=== PATIENT | female | born 1990 | race African-American/Black ===

== ENCOUNTER 2024-02-22 00:26 | Emergency (ER) | payer MEDICARE, SELFPAY ==
[2024-02-22 00:36] VITALS: BP 148/85; PULSE 88; PULSE 90; RESP 17; TEMP 36.2; O2SAT 100; O2SAT 95; BMI 34.3
--- NOTE | 2024-02-22 00:50 | PC.NURSE ---
Per Clinical coordinator patient does not need to be changed over and may keep her belongings. Patient is not SI or HI at this time but is endorsing significant anxiety. Will continue to monitor the situation through the night.
--- NOTE | 2024-02-22 00:53 | PC.NURSE ---
Patient refusing lab work but does endorse having a copy of blood work from 3 days ago that she is willing to share with the care providers.
--- NOTE | 2024-02-22 01:08 | PC.NURSE ---
pt biba from the side of the street, a&ox4, respirations even and unlabored. pt reports she has been having problems with PTSD and depression. pt reports she takes rispiridone but reports she does not believe it is working. pt is requesting to speak to care team. pt denies si/hi. pt is refusing to change lead at this time, digital strategy specialist aware.
--- NOTE | 2024-02-22 01:19 | PC.NURSE ---
patient states she is scared to go to the bathroom, offered to have a staff member accompany to the bathroom and that offer was declined. Patient subsequently changed into hospital attire then she decided to take hospital attire off and put her own clothes back on. Patient was moved from 22H to 18H because she feared that radiation was coming through the fischer and affecting her.
--- NOTE | 2024-02-22 01:27 | PC.NURSE ---
If I would have known these rules I would have never come here.
--- NOTE | 2024-02-22 01:29 | PC.NURSE ---
Patient is having irrational thoughts, stating this is crazy and wants to be discharged. Security to accompany patient to the exit.
--- NOTE | 2024-02-22 01:45 | PC.NURSE ---
Pt A&Ox3, states this is crazy, I am not changing into hospital attire, I want discharge papers . Pt ambulated out of hospital independently with steady gait.
== END 2024-02-22 01:50 | disposition left against medical advice (07) ==
PROVIDERS: Emergency Provider Emergency Medicine
DX: F41.9 Anxiety disorder, unspecified (principal)
CPT/HCPCS: 99282; 99284

== ENCOUNTER 2024-02-22 10:32 | Emergency (ER) | payer MEDICARE, SELFPAY ==
[2024-02-22 10:36] VITALS: BP 123/63; PULSE 75; RESP 19; TEMP 36.6; O2SAT 98; BMI 51.1
--- NOTE | 2024-02-22 12:35 | ED.LOWEXIN ---
HPI - Extremity Injury (Lower) General Chief Complaint: Extremity Injury, Lower Stated Complaint: pain in both legs Time Seen by Provider: 02/22/24 12:20 Source: patient Mode of arrival: ambulatory Limitations: no limitations History of Present Illness ED Provider: Benjy Wei HPI Narrative: This is a 33 year old female presenting to the ED requesting a ride home she states she was in our waiting room all night and states shes thirsty, hungry and needs me to call her a cab. I explained to her that we dont usually check into the emergency department for rides as we dont offer complimentary taxi services. She is demanding for me to get her a cab or she will call the police. Refusing to be seen states she just needs a ride. Related Data Allergies Allergy/AdvReac Type Severity Reaction Status Date / Time No Known Allergies Allergy Verified 02/22/24 10:41 Review of Systems Review of Systems: Yes all other systems are reviewed and are negative PMFSH Past Medical History Attestation statement: The following information was validated with the patient. Source: old records reviewed and nursing notes reviewed Social History Social History Advance Directives: No Advance Directives Information Provided: No Do you have a plan to hurt others: No Plan Physical Exam Vital Signs: Vital Signs: Last Vital Signs Temp 98 F 02/22/24 10:36 Pulse 75 02/22/24 10:36 Resp 19 02/22/24 10:36 BP 123/63 02/22/24 10:36 Pulse Ox 98 02/22/24 10:36 O2 Del Method Room Air 02/22/24 10:36 BMI result Body Mass Index 51.1 vss Appearance: Alert.? Oriented X3.? No acute cardiopulmonary distress distress.? Head: Normocephalic, atraumatic, no step-offs or deformities CVS: Pulses normal.? Respiratory: No respiratory distress.? Abdomen: Soft and nontender.? Skin: ? Normal skin color. Extremities: 5/5 strength to bilateral upper and lower extremitie Neuro: Oriented X 3.? No motor deficit.? No sensory deficit. Medical Decision Making Medical Decision Making MDM Narrative: 33 yo f presents seeking a ride home. No medical complaints to this PA-C or nursing. Just states shes hungry and . PE - appears well refusing thorough exam Hx and pe concerning for poor community resources for patient. Appears medically stable. Plan- patient eloped Differential Diagnosis Differential Diagnoses: The differential diagnosis associated with the presentation includes (Hx and pe concerning for poor community resources for patient. Appears medically stable. ) Admission/Observation Consideration of admission/observation: Escalation of care including admission/observation considered Discharge Plan Discharge Clinical Impression: Hungry Patient Disposition: Left W/O Completing Treatment Print Language: Icelandic
== END 2024-02-22 13:00 | disposition left against medical advice (07) ==
PROVIDERS: Emergency Provider Emergency Medicine
DX: M79.604 Pain in right leg (principal); M79.605 Pain in left leg
CPT/HCPCS: 99281

== ENCOUNTER 2024-07-04 13:43 | Emergency (ER) | payer MEDICARE, SELFPAY ==
[2024-07-04 13:50] VITALS: BP 145/87; PULSE 93; RESP 22; TEMP 36.6; O2SAT 100; BMI 56.6
--- NOTE | 2024-07-04 13:53 | ED.GENADULT ---
HPI - General Adult General Chief complaint: Back Pain/Injury Stated complaint: BACK PAIN VERTIGO Source: patient Mode of arrival: ambulatory Limitations: no limitations History of Present Illness ED Provider: DR. Morocho HPI narrative: 34-year-old female came in for evaluation of back pain please refer to pit provider note, patient in the ED thought to be psychotic and paranoid and wanted to leave AMA the situation was escalated that the patient wanted to leave and security at the bedside hands off, I was asked to come evaluate the patient. Patient is AAO x4, no SI, no HI, no danger to self or others, no hallucination, patient [place] her luggage with the patient, at this point patient felt she is competent to make her own decision with no acute psychotic problem. Patient signed AMA. Related Data Allergies Allergy/AdvReac Type Severity Reaction Status Date / Time No Known Allergies Allergy Verified 07/04/24 13:52 Review of Systems Review of Systems: Yes Unobtainable due to mental condition PMFSH Social History Social History Do you have a plan to hurt others: No Plan Physical Exam ED Vital Signs: Vital Signs - 24 hr 07/04/24 13:50 Temperature 97.8 F Pulse Rate 93 Respiratory Rate 22 H Blood Pressure 145/87 H Pulse Oximetry 100 Oxygen Delivery Method Room Air BMI result Body Mass Index 56.6 Vital signs have been reviewed and appear to be correct. Blood pressure elevated. Heart rate normal. Respiratory rate normal. Temperature normal. Oxygen saturation normal. Patient is refusing to be seen Course Course Course Narrative: RME performed by Nicolasa Viveros PA-C. Patient is a 34 year old assigned female at presenting to the emergency department with low back pain. Patient states she has low back pain after lifting something heavy and she also needs to speak to a social media project manager about a program she was supposed to be in here but has not gotten there yet. Detailed physical exam and review of systems are deferred to the licensed bondsman. Patient placed back in the waiting room pending room availability. Reevaluation(s) Reevaluation #1: AAO x3, understand that she is in the emergency department for evaluation of the medical condition that is not emergency or urgency, vital signs appeared to be stable, patient is redirectable, able to tell me no SI, no HI, told me that she is here to speak with social media project manager to help her to get into a program? Time: 15:35 Medical Decision Making Differential Diagnosis Differential Diagnoses: The differential diagnosis associated with the presentation includes (Acute disorganized psychosis, SI, HI, hallucination.) Admission/Observation Consideration of admission/observation: Escalation of care including admission/observation considered Discharge Plan Discharge Clinical Impression: Back pain Patient Disposition: Left Against Medical Advice Print Language: Israeli
--- NOTE | 2024-07-04 15:21 | PC.NURSE ---
Pt BIBA for back pain, sent to external triage. Pt then noted by staff editor to be sl disorganized and ?hallucinating in WR. This RN then brought pt back to ED space. When bringing pt back, pt appeared to be sl paranoid and not wanting to sit in initial spencer bed and then told this RN she was sent here from [place] for program (as pt was with a suitcase) Pt refused to give this RN further details and insisted on seeing a doctor first. Pt then escalated attempting to leave, Security to bedside to assist (hands off) and Dr Morocho to bedside to assess pt and formulate dispo as pt wanting to leave. Dr Morocho reports pt denies SI/HI, hallucinations and does not appear disorganized. Okay for pt to leave.
--- NOTE | 2024-07-04 15:26 | MHC.EDTECH ---
pt screaming that she wants to leave, moving her bed back and forth
--- OUTSIDE RECORDS SUMMARY | 2024-07-04 16:48 | XMS_ITS | Continuity of Care Document ---
Author Organization [facility] Address [address] [place] [address] Phone Care Team Providers Care Veterans' Counselor Name Role Phone Erasto URI Lisa Unavailable Unavailable Allergies, Adverse Reactions, Alerts Substance Reaction Status Criticality No Known allergies Medications Medication Instructions Dosage Effective Dates (start - stop) Status Comments omeprazole 40 mg capsule,delayed release take 1 capsule by oral route every day before a meal 40 MG - Active Zantac 150 mg tablet take 1 tablet by oral route 2 times every day - Active Tylenol 325 mg tablet take 2 tablet by oral route every 4 - 6 hours as needed 650 MG - Active Tums Ultra 400 mg (1,000 mg) chewable tablet Chew and swallow on 2 tablets every 4 - 6 hours as needed for acid reflux - Active First-BXN 1.6 g-1.6 g-0.2 g/237 mL Mucosal Susp swish, gargle, and spit a solution of 40ml nystatin and 40ml diphenhydramine and 40ml lidocaine every 6 hours as needed - No Longer Active Procedures Procedure Date Office/outpatient visit,est, mod 2015 HIV-1/HIV-2 With Reflex To Western Blot VISUAL ACUITY SCREEN Preventive checkup, est,18-39 yrs Office/outpatient visit,est, low 2013 TDAP VACCINE >7 IM Ther/Proph/Diag Inj,SC/IM TB intradermal test Specimen handling/transport Venpnctr fngr/heel/ear stick routne Antibody, varicella-zoster Antibody, rubella Antibody, mumps Antibody, rubeola Office/outpatient visit,[facility] 2012 Advance Directives Directive Yes / No Effective Date File Name No Information Encounters Encounter Description Practice Location Reason(s) For Visit Diagnoses Date Provider Providers Copied on Encounter Office/outpa tient visit,[facility], [facility], [address] [place] [address], [id number], [place] tel:[phone] [facility] abdominal pain (chief complaint) Misc (chief complaint) Gastritis, unspecified, without bleedingBody mass index (BMI) 35.0-35.9, adultEncounter for screening for other viral diseases [address], [id number], [place]. tel:[phone] Preventive checkup, est,18-39 yrs [facility], [address] [place] [address], [id number], [place] tel:[phone] [facility] Physical (chief complaint) Routine Medical ExamMED EXAM NEC-ADMIN PURPSCREENING FOR MEASLESSCREENIN G FOR RUBELLASCREENIN G-POLIOMYELITIS SCREEN FOR CONDITION NOSTETANUS TOXOID INOCULATObesity , MorbidSCREENING -PULMONARY TBVACCINATION FOR DTP-DTAP 4 Barber Ramirez. [address], [id number], [place]. tel:[phone] Office/outpa tient visit,[facility], [address] [place] [address], [id number], [place] tel:[phone] [facility] sore throat (chief complaint) Pharyngitis, Acute 3 Brayden Brandt. [address] [place] [address], [id number], [place]. tel:[phone] Family History Family Member Type Diagnosis Age At Onset No Information Immunizations Vaccine Date Status Comments Tdap (Boostrix r) administered Source: Ne w Immunization Record Payers Payer name Insurance type Covered republican ID Alondra friedman(s) [employer] CI [id number] [facility] [id number] Social History Type Description Quantity Date Captured Comments Alcohol Use Details No Caffeine Use Details coffee and soda 6 Tobacco Use Status Never smoked tobacco 2015 Smoking Status Never smoker Non-Smoking Tobacco Use Details : No Details Available : No Details Available Sex Female Gender Identity Female Vital Signs Date / Time: Height Weight BMI Pulse Rate Blood Pressure Temperature Respiratory Rate Body Surface Area Head Circumference Head Circ. Percentile Wt./Mateo. Percentile BMI percentile Pulse Ox Inhaled Ox 4:01 PM 65.00 in 97.704 kg (215.40 lbs) 35.8 4 kg/m eter (2) 70 /min 123/77 mm[Hg] 97.30 F 20 /min Chief Complaint And Reason For Visit From encounter dated '11/30/2015 14:40'. abdominal pain (chief complaint). Description: Onset: 3 Days. The severity of the problem is moderate. Pain scale: 5/10. The problem has worsened. The symptoms are constant. The location is midline. The reports radiation to the back. The quality of the pain is colicky. Associated symptoms include diarrhea (frequency is 2-3x 3 days ago), nausea and vomiting (frequency is 2x yesterday). Pertinent negatives include change in appetite and fever.Additional information:Patient did a self cleanse withwater only and has not eaten in 3 days. She cannot keep fluids down at all. Foul taste in her mouth. water taste bad. LMP: 11/24/2015. Misc (chief complaint). Description: Patient advised that she did a self cleanse and that she has not eat in 3-4 days. She is nauseated and has been vomiting. She has not been able to keep any fluidsdown. She complains of diarrhea at that time but has not had a bm in 3 days.currently living at [facility] rehabbing from alcohol, marihuana, OTC sleeping pill allergy pill and cough syrup. has an xiety and currently on no meds. Reason For Referral Reason For Referral No Information Plan Of Treatment Date Type Action Status Goal PPD (TST). Due on 4 due Goal Tdap due Goal Breast MRI. Due on 16 due Goal TOOL ENGINE LATHE SET UP OPERATOR exam. Due on due Goal PAP. Due on due Goal H&P. Due on due Goal Dental exam. Due on 016 due Goal Influenza vaccine. Due on due Goal Breast exam. Due on 016 due Goal Lifestyle education regardin g diet completed Goal HPV (1st). Due on 4 due Goal Tdap. Due on due Goal TOOL ENGINE LATHE SET UP OPERATOR exam. Due on due Goal PAP. Due on due Goal Breast exam. Due on 013 due Goal H&P. Due on due Goal Td vaccine. Due on 14 due History Of Present Illness Encounter Date Complaint History Of Prese nt Illness abdominal pain Onset: 3 Days. T he severity of the problem is moderate. Pain scale: 5/10. The problem has worsened. The symptoms are constant. The location is midline. The reports radiation to the back. The quality of the pain is colicky. Associated symptoms include diarrhea (frequency is 2-3x 3 days ago), nausea and vomiting (frequency is 2x yesterday). Pertinent negatives include change in appetite and fever.Additional information:Patient did a self cleanse with water only and has not eaten in 3 days. She cannot keep fluids down at all. Foul taste in her mouth. water taste bad. LMP: 11/24/2015. [facility] Patient advised that she did a self cleanse and that she has not eat in 3-4 days. She is nauseated and has been vomiting. She has not been able to keep any fluids down. She complains of diarrhea at that time but has not had a bm in 3 days.currently living at [facility] rehabbing from alcohol, marihuana, OTC sleeping pill allergy pill and cough syrup. has anxiety and currently on no meds. Functional Status Date Functional Assessmen t Pain Score 5/10 Instructions Date Instruction Additional Infor benjamín Pt advised on testin g for and eradication of H.Pylori infectiontake all medications as orderdNO NSAIDS, Aspirins, steriods, take all meds as ordered. Check with your doctor before starting a new drugEncouraged to keep F/U appointmentclear liquid diet: sprite, 7-UP, gingeraleadvance diet as tolerated: avoid coffee, alcohol, dairy products, most fruits, vegetables red meat & heavily seasoned foods.Begin with clear liquids at room temperature, soups with rice, salted crackers, dry toast/bread and sherbet, then add baked potato, then fish poultry, applesauce and bananas. follow-up in 1 week Related to Gastritis, unspecified, without bleeding Giving encouragement to exercise Related to Body mass index (BMI) 35.0-35.9, adult Lifestyle education regarding di et Related to Body mass index (BMI) 35.0-35.9, adult Assessments Type Assessment Date assessment Gastritis, unspecified, without bleeding assessment Body mass index (BMI) 35.0-35.9, adult assessment Encounter for screening for othe r viral diseases Mental Status Date Cognitive Assessment Orientation - [place] ed to time, place, person, situation. Patient Care Teams Name Effective Dates (start - stop) Status Members No Information
--- OUTSIDE RECORDS SUMMARY | 2024-07-04 16:49 | XMS_ITS ---
Author Name [facility] Organization Unknown Encounters Encounter Type Encounter Reason Primary Diagnosis Location Date Emergency Screening for unspecified condition Screening for unspecified condition [facility] 02/23/2024 Emergency Swelling of limb Swelling of limb [facility] 02/22/2024 Emergency Other specified soft tissue disorders Other specified soft tissue disorders [facility] 02/22/2024 Care Team Organization Name Specialty Phone Email Start Date End Da te [facility] 02/25/2024 06/16/2024 [facility] GINGER COOLEY Primary [facility] 02/25/2024 04/16/2024 [facility] GINGER COOLEY [facility] 02/23/2024 [facility] 02/23/2024 [place] NO PCP Primary Care 02/23/2024 [facility] 02/23/2024
--- OUTSIDE RECORDS SUMMARY | 2024-07-04 16:49 | XMS_ITS | Data Portability ---
Author Organization [place] - [facility], [place] Address [address] [place] [address] Assessment No assessment recorded. Plan of Treatment Reminders Order Date Submit Date Provider Last Modified By Organization Details Last Modified Time Details Appointments None recorded. Lab None recorded. Referral gastroenter ologist referral - Stat 2022 023 [email or web address] Not available 3 11:42:31 gastroenter ologist referral - Stat 2022 023 [email or web address] Not available 3 21:37:29 pain management referral - List 2022 023 [email or web address] Not available 3 09:11:51 primary care provider referral - List 2022 023 [email or web address] Not available 3 09:11:51 orthopedic spine surgeon referral - List 2022 023 [email or web address] Not available 3 14:49:40 primary care provider referral - List 2022 023 [email or web address] Not available 3 14:49:41 Procedures None recorded. Surgeries None recorded. Imaging US, abdomen - STAT CPT Code: [id number] US ABDOMEN RUQ. WET READ REQUIRED.PE : RUQ abdominal pain, Rule out gallstones. CPT: 61880 2022 023 [email or web address] [facility], [address] [facility], [place], [address], 3 21:37:29 XR, ribs, unilateral, w/ PA chest 2022 023 [email or web address], [address], [place], [address], 3 09:11:51 Medication Orders Flonase Allergy Relief 50 mcg/actuati on nasal spray,suspe nsion 2022 023 NITISH Not available 3 18:29:22 Carafate 1 gram tablet 2022 023 NITISH Not available 3 18:29:17 omeprazole 40 mg capsule,del ayed release 2022 023 NITISH Not available 3 18:29:26 lidocaine 5 % topical patch 2022 023 NITISH Not available 3 16:52:16 Voltaren 1 % topical gel 2022 023 NITISH Not available 3 16:52:17 Patient TargetsNo targets recorded. Patient Instructions Encounter Date Encounter Id Patient Instructions Last Modified By Organization Details Last Modified Time 05/04/2022 [id number] A healthy lifestyle: care instructions Not available 05/04/2022 14:49:40 Thank you for visiting [facility].There are two ways to view your lab results: : ? 1. ? ? ? The [employer] Mobile marlon is available to all patients 18 and older in the Marlon Store and DraftDay. First-time marlon users will need to create an account; please note you? l l need to select a login and password for the marlon versus just using your patient portal login credentials. Your lab results will be posted to the [employer] marlon as soon as they? r e available. ? 2. ? ? ? Via email , as soon as lab results are available. If you don? t receive an email within the estimated time frame, give our Aftercare team a call at [phone]. Chest Pain Your Care Instructions There are many things that can cause chest pain. Some are not serious and will get better on their own in a few days. But some kinds of chest pain need more testing and treatment. Your doctor may have recommended a follow-up visit in the next 8 to 12 hours. If you are not getting better, you may need more tests or treatment. Even though your doctor has released you, you still need to watch for any problems. The doctor carefully checked you, but sometimes problems can develop later. If you have new symptoms or if your symptoms do not get better, get medical care right away. If you have worse or different chest pain or pressure that lasts more than 5 minutes or you passed out (lost consciousness), call 911 or seek other emergency help right away. A medical visit is only one step in your treatment. Even if you feel better, you still need to do what your doctor recommends, such as going to all suggested follow-up appointments and taking medicines exactly as directed. This will help you recover and help prevent future problems. How can you care for yourself at home? Rest until you feel better. Take your medicine exactly as prescribed. Call your doctor if you think you are having a problem with your medicine. Do not drive after taking a prescription pain medicine. When should you call for help? Call 911 if: You passed out (lost consciousness). You have severe difficulty breathing. You have symptoms of a heart attack. These may include: Chest pain or pressure, or a strange feeling in your chest. Sweating. Shortness of breath. Nausea or vomiting. Pain, pressure, or a strange feeling in your back, neck, jaw, or upper belly or in one or both shoulders or arms. Lightheadedness or sudden weakness. A fast or irregular heartbeat. After you call 911, the lace roller operator may tell you to chew 1 adult-strength or 2 to 4 low-dose aspirin. Wait for an ambulance. Do not try to drive yourself. Call your doctor today if: You have any trouble breathing. Your chest pain gets worse. You are dizzy or lightheaded, or you feel like you may faint. You are not getting better as expected. You are having new or different chest pain. Back Pain Your Care Instructions Back pain has many possible causes. It is often related to problems with muscles and ligaments of the back. It may also be related to problems with the nerves, discs, or bones of the back. Moving, lifting, standing, sitting, or sleeping in an awkward way can strain the back. Sometimes you don't notice the injury until later. Arthritis is another common cause of back pain. Although it may hurt a lot, back pain usually improves on its own within several weeks. Most people recover in 12 weeks or less. Using good home treatment and being careful not to stress your back can help you feel better sooner. Follow-up care is a elizabeth part of your treatment and safety. Be sure to make and go to all appointments, and call your doctor if you are having problems. It s also a good idea to know your test results and keep a list of the medicines you take. How can you care for yourself at home? Sit or lie in positions that are most comfortable and reduce your pain. Try one of these positions when you lie down: Lie on your back with your knees bent and supported by large pillows. Lie on the floor with your legs on the seat of a sofa or chair. Lie on your side with your knees and hips bent and a pillow between your legs. Lie on your stomach if it does not make pain worse. Do not sit up in bed, and avoid soft couches and twisted positions. Bed rest can help relieve pain at first, but it delays healing. Avoid bed rest after the first day of back pain. Change positions every 30 minutes. If you must sit for long periods of time, take breaks from sitting. Get up and walk around, or lie in a comfortable position. Try using a heating pad on a low or medium setting for 15 to 20 minutes every 2 or 3 hours. Try a warm shower in place of one session with the heating pad. You can also try an ice pack for 10 to 15 minutes every 2 to 3 hours. Put a thin cloth between the ice pack and your skin. Take pain medicines exactly as directed. If the doctor gave you a prescription medicine for pain, take it as prescribed. If you are not taking a prescription pain medicine, ask your doctor if you can take an qhzb-jor-bnzqgig medicine. Take short walks several times a day. You can start with 5 to 10 minutes, 3 or 4 times a day, and work up to longer walks. Walk on level surfaces and avoid hills and stairs until your back is better. Return to work and other activities as soon as you can. Continued rest without activity is usually not good for your back. To prevent future back pain, do exercises to stretch and strengthen your back and stomach. Learn how to use good posture, safe lifting techniques, and proper body mechanics. When should you call for help? Call your doctor now or seek immediate medical care if: You have new or worsening numbness in your legs. You have new or worsening weakness in your legs. (This could make it hard to stand up.) You lose control of your bladder or bowels. Watch closely for changes in your health, and be sure to contact your doctor if: Your pain gets worse. You are not getting better after 2 weeks. Not available 05/04/2022 14:50:26 06/19/2022 [id number] A healthy lifestyle: care instructions [facility] Not available 06/20/2022 09:11:51 pcp list [facility] Not available 2022 09:11:51 Thank you for visiting [facility].There are two ways to view your lab results: : ? 1. ? ? ? The [employer] Mobile marlon is available to all patients 18 and older in the Marlon Store and Google Coub. First-time marlon users will need to create an account; please note you? l l need to select a login and password for the marlon versus just using your patient portal login credentials. Your lab results will be posted to the [employer] marlon as soon as they? r e available. ? 2. ? ? ? Via email , as soon as lab results are available. If you don? t receive an email within the estimated time frame, give our Aftercare team a call at [phone]. Chest Wall Pain Your Care Instructions: Chest pain is not always a sign that something is wrong with your heart or that you have another serious problem. The doctor thinks your chest pain is caused by strained muscles or ligaments, inflamed chest cartilage, or another problem in your chest, rather than by your heart. You may need more tests to find the cause of your chest pain. Follow-up care is a elizabeth part of your treatment and safety. Be sure to make and go to all appointments, and call your doctor if you are having problems. It's also a good idea to know your test results and keep a list of the medicines you take. How can you care for yourself at home? Take pain medicines exactly as directed. If the doctor gave you a prescription medicine for pain, take it as prescribed. If you are not taking a prescription pain medicine, ask your doctor if you can take an muou-jui-xckpmuz medicine. Rest and protect the sore area. Stop, change, or take a break from any activity that may be causing your pain or soreness. Put ice or a cold pack on the sore area for 10 to 20 minutes at a time. Try to do this every 1 to 2 hours for the next 3 days (when you are awake) or until the swelling goes down. Put a thin cloth between the ice and your skin. After 2 or 3 days, apply a heating pad set on low or a warm cloth to the area that hurts. Some doctors suggest that you go back and forth between hot and cold. Do not wrap or tape your ribs for support. This may cause you to take smaller breaths, which could increase your risk of lung problems. Mentholated creams such as Bengay or Icy Hot may soothe sore muscles. Follow the instructions on the package. Follow your doctor's instructions for exercising. Gentle stretching and massage may help you get better faster. Stretch slowly to the point just before pain begins, and hold the stretch for at least 15 to 30 seconds. Do this 3 or 4 times a day. Stretch just after you have applied heat. As your pain gets better, slowly return to your normal activities. Any increased pain may be a sign that you need to rest a while longer. When should you call for help? Call 911 anytime you think you may need emergency care. For example, call if: You have chest pain or pressure. This may occur with: Sweating. Shortness of breath. Nausea or vomiting. Pain that spreads from the chest to the neck, jaw, or one or both shoulders or arms. Dizziness or lightheadedness. A fast or uneven pulse. After calling 911, chew 1 adult-strength aspirin. Wait for an ambulance. Do not try to drive yourself. You have sudden chest pain and shortness of breath, or you cough up blood. Call your doctor now or seek immediate medical care if: You have any trouble breathing. Your chest pain gets worse. Your chest pain occurs consistently with exercise and is relieved by rest. Watch closely for changes in your health, and be sure to contact your doctor if: Your chest pain does not get better after 1 week. [email or web address] Not available 06/19/2022 18:11:34 07/25/2022 [id number] A healthy lifestyle: care instructions Not available 07/25/2022 21:37:29 Thank you for visiting [facility].There are two ways to view your lab results: : ? 1. ? ? ? The [employer] Mobile marlon is available to all patients 18 and older in the Marlon Store and DraftDay. First-time marlon users will need to create an account; please note you? l l need to select a login and password for the marlon versus just using your patient portal login credentials. Your lab results will be posted to the [employer] marlon as soon as they? r e available. ? 2. ? ? ? Via email , as soon as lab results are available. If you don? t receive an email within the estimated time frame, give our Aftercare team a call at [phone]. Abdominal Pain Abdominal pain has many possible causes. Some aren''t serious and get better on their own in a few days. Others need more testing and treatment. If your pain continues or gets worse, you need to be rechecked and may need more tests to find out what is wrong. You may need surgery to correct the problem. Don''t ignore new symptoms, such as fever, nausea and vomiting, urination problems, pain that gets worse, and dizziness. These may be signs of a more serious problem. Your doctor may have recommended a follow-up visit in the next 8 to 12 hours. If you are not getting better, you may need more tests or treatment. The doctor has checked you carefully, but problems can develop later. If you notice any problems or new symptoms, get medical treatment right away. Follow-up care is a elizabeth part of your treatment and safety. Be sure to make and go to all appointments, and call your doctor if you are having problems. It''s also a good idea to know your test results and keep a list of the medicines you take. How can you care for yourself at home? Rest until you feel better. To prevent dehydration, drink plenty of fluids, enough so that your urine is light yellow or clear like water. Choose water and other caffeine-free clear liquids until you feel better. If you have kidney, heart, or liver disease and have to limit fluids, talk with your doctor before you increase the amount of fluids you drink. If your stomach is upset, eat mild foods, such as rice, dry toast or crackers, bananas, and applesauce. Try eating several small meals instead of two or three large ones. Wait until 48 hours after all symptoms have gone away before you have spicy foods, alcohol, and drinks that contain caffeine. Do not eat foods that are high in fat. Avoid anti-inflammatory medicines such as aspirin, ibuprofen (Advil, Motrin), and naproxen (Aleve). These can cause stomach upset. Talk to your doctor if you take daily aspirin for another health problem. When should you call for help? Call 911 anytime you think you may need emergency care. For example, call if: You passed out (lost consciousness). You pass maroon or very bloody stools. You vomit blood or what looks like coffee grounds. You have new, severe belly pain. Call your doctor now or seek immediate medical care if: Your pain gets worse, especially if it becomes focused in one area of your belly. You have a new or higher fever. Your stools are black and look like tar, or they have streaks of blood. You have unexpected vaginal bleeding. You have symptoms of a urinary tract infection. These may include: Pain when you urinate. Urinating more often than usual. Blood in your urine. You are dizzy or lightheaded, or you feel like you may faint. Watch closely for changes in your health, and be sure to contact your doctor if: You are not getting better after 1 day (24 hours). [email or web address] Not available 07/25/2022 17:08:58 07/27/2022 [id number] A healthy lifestyle: care instructions Not available 07/27/2022 17:58:47 allergies: care instructions Not available 07/27/2022 17:58:47 managing your allergies: care instructions Not available 07/27/2022 17:58:47 Thank you for visiting [facility].There are two ways to view your lab results: : ? 1. ? ? ? The [employer] Mobile marlon is available to all patients 18 and older in the Marlon Store and Google Coub. First-time marlon users will need to create an account; please note you? l l need to select a login and password for the marlon versus just using your patient portal login credentials. Your lab results will be posted to the [employer] marlon as soon as they? r e available. ? 2. ? ? ? Via email , as soon as lab results are available. If you don? t receive an email within the estimated time frame, give our Aftercare team a call at [phone]. Seasonal Allergies Your Care Instructions Allergies occur when your body''s defense system (immune system) overreacts to certain substances. The immune system treats a harmless substance as if it were a harmful germ or virus. Many things can cause this to happen. Examples include pollens, medicine, food, dust, animal dander, and mold. Your allergies are seasonal if you have symptoms just at certain times of the year. In that case, you are probably allergic to pollens from certain trees, grasses, or weeds. Allergies can be mild or severe. Ulul-uah-ddkeojg allergy medicine may help with some symptoms. Read and follow all instructions on the label. Managing your allergies is an important part of staying healthy. Your doctor may suggest that you have tests to help find the cause of your allergies. When you know what things trigger your symptoms, you can avoid them. This can prevent allergy symptoms and other health problems. In some cases, immunotherapy might help. For this treatment, you get shots or use pills that have a small amount of certain allergens in them. Your body gets used to the allergen, so you react less to it over time. This kind of treatment may help prevent or reduce some allergy symptoms. Follow-up care is a elizabeth part of your treatment and safety. Be sure to make and go to all appointments, and call your doctor if you are having problems. It''s also a good idea to know your test results and keep a list of the medicines you take. How can you care for yourself at home? Be safe with medicines. Take your medicines exactly as prescribed. Call your doctor if you think you are having a problem with your medicine. During your allergy season, keep windows closed. If you need to use air-conditioning, change or clean all filters every month. Take a shower and change your clothes after you have been outside. Stay inside when pollen counts are high. Vacuum once or twice a week. Use a vacuum cleaner laboratory equipment with a HEPA filter or a double-thickness filter. When should you call for help? Give an epinephrine shot if: You think you are having a severe allergic reaction. After giving an epinephrine shot, call 911, even if you feel better. Call 911 if: You have symptoms of a severe allergic reaction. These may include: Sudden raised, red areas (hives) all over your body. Swelling of the throat, mouth, lips, or tongue. Trouble breathing. Passing out (losing consciousness). Or you may feel very lightheaded or suddenly feel weak, confused, or restless. You have been given an epinephrine shot, even if you feel better. Call your doctor now or seek immediate medical care if: You have symptoms of an allergic reaction, such as: A rash or hives (raised, red areas on the skin). Itching. Swelling. Belly pain, nausea, or vomiting. Watch closely for changes in your health, and be sure to contact your doctor if: You do not get better as expected. [email or web address] Not available 07/27/2022 10:49:28 08/01/2022 [id number] A healthy lifestyle: care instructions [email or web address] Not available 08/03/2022 09:12:30 [facility]There are two ways to view your lab results: : ? 1. ? ? ? The [employer] Mobile marlon is available to all patients 18 and older in the Marlon Store and Google Play. First-time marlon users will need to create an account; please note you? l l need to select a login and password for the marlon versus just using your patient portal login credentials. Your lab results will be posted to the [employer] marlon as soon as they? r e available. ? 2. ? ? ? Via email , as soon as lab results are available. If you don? t receive an email within the estimated time frame, give our Aftercare team a call at [phone]. Abdominal Pain Abdominal pain has many possible causes. Some aren''t serious and get better on their own in a few days. Others need more testing and treatment. If your pain continues or gets worse, you need to be rechecked and may need more tests to find out what is wrong. You may need surgery to correct the problem. Don''t ignore new symptoms, such as fever, nausea and vomiting, urination problems, pain that gets worse, and dizziness. These may be signs of a more serious problem. Your doctor may have recommended a follow-up visit in the next 8 to 12 hours. If you are not getting better, you may need more tests or treatment. The doctor has checked you carefully, but problems can develop later. If you notice any problems or new symptoms, get medical treatment right away. Follow-up care is a elizabeth part of your treatment and safety. Be sure to make and go to all appointments, and call your doctor if you are having problems. It''s also a good idea to know your test results and keep a list of the medicines you take. How can you care for yourself at home? Rest until you feel better. To prevent dehydration, drink plenty of fluids, enough so that your urine is light yellow or clear like water. Choose water and other caffeine-free clear liquids until you feel better. If you have kidney, heart, or liver disease and have to limit fluids, talk with your doctor before you increase the amount of fluids you drink. If your stomach is upset, eat mild foods, such as rice, dry toast or crackers, bananas, and applesauce. Try eating several small meals instead of two or three large ones. Wait until 48 hours after all symptoms have gone away before you have spicy foods, alcohol, and drinks that contain caffeine. Do not eat foods that are high in fat. Avoid anti-inflammatory medicines such as aspirin, ibuprofen (Advil, Motrin), and naproxen (Aleve). These can cause stomach upset. Talk to your doctor if you take daily aspirin for another health problem. When should you call for help? Call 911 anytime you think you may need emergency care. For example, call if: You passed out (lost consciousness). You pass maroon or very bloody stools. You vomit blood or what looks like coffee grounds. You have new, severe belly pain. Call your doctor now or seek immediate medical care if: Your pain gets worse, especially if it becomes focused in one area of your belly. You have a new or higher fever. Your stools are black and look like tar, or they have streaks of blood. You have unexpected vaginal bleeding. You have symptoms of a urinary tract infection. These may include: Pain when you urinate. Urinating more often than usual. Blood in your urine. You are dizzy or lightheaded, or you feel like you may faint. Watch closely for changes in your health, and be sure to contact your doctor if: You are not getting better after 1 day (24 hours). [email or web address] Not available 08/01/2022 18:53:42 Reason for Referral Orthopedic Spine Surgeon Ref erral for Chest wall tenderness List Referring Physician: [facility], Encounter Date: 05/04/2022 Primary Care Provider Referr al for Chest wall tenderness List Referring Physician: [facility], Encounter Date: 05/04/2022 Pain Management Referral for Chest wall pain eval for chest wall pain List Referring Physician: [facility], Encounter Date: 06/19/2022 Primary Care Provider Referr al for Chest wall pain List Referring Physician: [facility], Encounter Date: 06/19/2022 Traffic Agent Referral for Epigastric pain F/U on epigastric pain Stat Referring Physician: [facility], Encounter Date: 07/25/2022 Traffic Agent Referral for Epigastric pain Stat Referring Physician: [facility], Encounter Date: 08/01/2022 Results Created Date Observation Date Name Description Value Unit Range Abnormal Flag Note LastModifiedBy Organization Detail LastModifiedTime 06/20/1906/19/2022 XR, ribs, unila teral , w/ PA chest No observ ation record ed. [id number] 1 [facility], [place], [address], 06/20/2022 07:24:22 Result Notes None recorded. Problems Name Problem SNOMED Code Status Onset Date Resolution Date Notes Provider Name and Address Organization Details Recorded Time Asthma [id number] Active 023 ALEXANDER Piña - .[facility] 07/25/2022 16:52:03 Problem Notes None recorded.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
--- OUTSIDE RECORDS SUMMARY | 2024-07-04 16:49 | XMS_ITS | Encounter Summary ---
Author Organization [facility], [facility], and [facility] Address [address] [facility] [address] [facility] [address] [place] [address] [place] [address] Care Team Providers Care Machine Whitener Name Role Phone Greg Tolbert MD Unavailable iRcardo Jo MD Unavailable [phone] Dee Luna MD Unavailable [phone] Keyana Torrez Unavailable Jayshree Kaiser Unavailable Unavailable Keyana Torrez Primary Care Provider [phone] Reason for Visit * Reason Comments Consult I'd like to get a c leaning done. I don't really have any pain Encounter Details Date Type Department Care Team (Latest Contact Info) Description 07/01/2024 8:28 AM EDT - 07/01/2024 8:08 PM EDT Hospital Encounter [facility] [address] [place] [phone] Yajaira Danielle, DARRYL [address] [place] [phone] Consult ( I'd like to get a cleaning done. I don't really have any pain ) Discharge Disposition: Home or Self Care Social History Tobacco Use Types Packs/Day Years Used Date Smoking Tobacco: Never Passive Smoke Exposure: Never Smokeless Tobacco: Never Alcohol Use Standard Drinks/Week Comments Never 0 (1 standard drink = 0.6 oz pur e alcohol) Hunger Vital Sign Answer Date Recorded Within the past 12 months, y ou worried that your food would run out before you got the money to buy more. Never true 07/13/19 23 Within the past 12 months, t he food you bought just didn't last and you didn't have money to get more. Never true 07/12/2022 PRAPARE - Transportation Answer Date Re corded In the past 12 months, has l ack of transportation kept you from medical appointments or from getting medications? No 06/29 In the past 12 months, has l ack of transportation kept you from meetings, work, or from getting things needed for daily living? No 07/12/2022 Housing Stability Vital Sign Answer Jorge Luis e Recorded In the last 12 months, was t here a time when you were not able to pay the mortgage or rent on time? No 07/12/2022 In the last 12 months, how many places have you lived? 1 07/12/2022 In the last 12 months, was t here a time when you did not have a steady place to sleep or slept in a senior living (including now)? No 07/12/2022 Comments No Sex and Gender Information Value Date Recorded Sex Assigned at Female 04/12/2022 2:54 PM EST Legal Sex Female 3:04 PM EDT Gender Identity Female 04/12/2022 2:54 PM EST Sexual Orientation Not on file documented as of this encounter Medications at Time of Discharge acetaminophen (TYLENOL) 325 MG TabletIndications :Pain Take 1 tablet by mouth Every 6 Hours As Needed 30 tablet 3 Aluminum-Magnesiu m-Simethicone 200-200-20 MG/5ML SuspensionIndicat ions:Gastric Hyperacidity Take 10 mL by mouth 4 Times a Day As Needed. Indications: Excess Stomach Acid 355 mL 1 Calcium Carbonate Antacid (MAALOX) 600 MG Tablet ChewableIndicatio ns:Gastric Hyperacidity Take 1 tablet by mouth See Administration Instructions Take with food.. 90 tablet 2 cyclobenzaprine 5 MG TabletIndications :Muscle Spasm Take 1 tablet by mouth 3 Times a Day As Needed for muscle spasms. 30 tablet 05/01/2022 6:46 PM EST 3 gabapentin 600 MG Tablet Take 1 tablet by mouth 3 times a day 90 tablet 04/26/2022 7:47 PM EST 3 hydrophor OintmentIndicatio ns:Skin Rash,apply behind knees 2 per day Apply topically Daily As Needed. 60 g 5 lidocaine 4 % CreamIndications: Analgesia Apply topically as directed 15 g 1 05/03/2022 5:27 PM EST 3 nystatin 998127 UNIT/GM Powder powderIndications :Candidiasis Apply topically 2 Times a Day. 15 g 5 ofloxacin otic solution 0.3 % Solution otic solutionIndicatio ns:Bacterial Eye Infection Administer 5 drops into affected ear(s) Daily. 5 mL 4 ondansetron (ZOFRAN) 4 MG TabletIndications :Nausea and Vomiting Take 1 tablet by mouth Every 8 Hours As Needed for nausea/vomiting. 20 tablet 2 oxymetazoline 0.05 % Solution nasal sprayIndications: Nasal Congestion 2 sprays nasally 2 Times a Day. 30 mL 5 pantoprazole 20 MG Tablet DRIndications:Gas tric Hyperacidity Take 1 tablet by mouth Daily 30 mins Before Breakfast. 30 tablet 3 predniSONE 20 MG Tablet Take 2 tablets by mouth daily x 3 days. Take with food. 6 tablet 07/11/2022 12:04 PM EDT 3 Zinc Oxide 10 % OintmentIndicatio ns:Moist Skin Apply topically 2 Times a Day. 85 g 5 documented as of this encounter Progress Notes * Yajaira Danielle DDS - 07/01/2024 8:30 AM EDT David Luna 34 year old female presents to the dental clinic - Patient presents to the clinic for Emergency - Chief complaint: Consult - I'd like to get a cleaning done. I don't really have any pain Past Medical History: Diagnosis Date Chiari I malformation Chronic constipation Fatty liver PTSD (post-traumatic stress disorder) Schizoaffective disorder Venous stasis Current Outpatient Medications Medication Sig Dispense Refill acetaminophen (TYLENOL) 325 MG Tablet Take 1 tablet by mouth Every 6 Hours As Needed 30 tablet 0 albuterol HFA 108 (90 Base) MCG/ACT Aerosol Solution inhaler Inhale 2 puffs Every 4 Hours As Neededfor wheezing. 1 g 0 Fccmtiau-Pxlutedgy-Boqmhzcazxf 200-200-20 MG/5ML Suspension Take 10 mL by mouth 4 Times a Day As Needed. Indications: Excess Stomach Acid 355 mL 0 Wwyuvssj-Caqwobnkb-Zpfjzvjuwhf 200-200-20 MG/5ML Suspension Take 10 mL by mouth 4 Times a Day As Needed. 335 mL 0 Calcium Carbonate Antacid (MAALOX) 600 MG Tablet Chewable Take 1 tablet by mouth See AdministrationInstructions Take with food.. 90 tablet 0 cyclobenzaprine 5 MG Tablet Take 1 tablet by mouth 3 Times a Day As Needed for muscle spasms. 30 tablet 0 diphenhydrAMINE (BENADRYL ALLERGY) 25 MG Capsule Take 1 capsule (25 mg) by mouth Nightly As Needed for itching for up to 14 days. 14 capsule 0 famotidine (PEPCID) 20 MG Tablet Take 1 tablet by mouth 2 Times a Day for 10 days 20 tablet 0 fluticasone 50 MCG/ACT Suspension nasal spray Use 2 sprays Daily. 16 g 0 gabapentin 600 MG Tablet Take 1 tablet by mouth 3 times a day 90 tablet 0 hydrophor Ointment Apply topically Daily As Needed. 60 g 0 hydrOXYzine 25 MG Capsule Take 1 capsule by mouth Every 8 Hours As Needed for anxiety for up to 14 days. Indications: SEDATIVE, HYPNOTIC, OR ANXIOLYTIC DISORDERS 42 capsule 0 lidocaine 4 % Cream Apply topically as directed 15 g 1 nystatin 957385 UNIT/GM Powder powder Apply topically 2 Times a Day. 15 g 0 ofloxacin otic solution 0.3 % Solution otic solution Administer 5 drops into affected ear(s) Daily.5 mL 0 ondansetron (ZOFRAN) 4 MG Tablet Take 1 tablet by mouth Every 8 Hours As Needed for nausea/vomiting. 20 tablet 0 oxymetazoline 0.05 % Solution nasal spray 2 sprays nasally 2 Times a Day. 30 mL [address] pantopraz[address] Take 1 tablet by mouth Daily 30 mins Before Breakfast. 30 tablet 0 predniSONE 20 MG Tablet Take 2 tablets by mouth daily x 3 days. Take with food. 6 tablet 0 Zinc Oxide 10 % Ointment Apply topically 2 Times a Day. 85 g 0 No current facility-administered medications for this encounter. Allergies 1. Dairy Aid [Tilactase] 2. Honey Extra-oral Exam: YOLA WNL. No swelling, no lymphadenopathy, no facial asymmetries. Assessment: Patient presented with no chief complaints of pain or swelling and requested a cleaning. Patient reports that she saw a dentist one year ago and just wanted a general exam at today's visit. Informed patient that this was an emergency visit, so we wouldn't be able to perform a comprehensive exam at today's visit. Patient will schedule a new patient exam with the front elevator operator Pt left ambulatory, satisfied and comfortable. All questions/concerns were addressed. ~Clinical note~ Patient Bill of Rights Given By Intermediate Frame Tender Staff~ Tx performed today: Dental procedures in this visit [id number] - OFFICE VISIT FOR OBSERVATION (DURING REGULARLY SCHEDULED HOURS) - NO OTHER SERVICES PERFORMED (Completed) Service provider: Yajaira Danielle DDS Billing provider: Margarita Kent DDS Diagnosis: 1. Dental examination Tx supervised and notes reviewed by attending: Margarita Kent DDS NV: New patient exam * Margarita Kent DDS - 07/01/2024 8:30 AM EDT I was the supervising physician in the delivery of the service. documented in this encounter Plan of Treatment Upcoming Encounters Date Type Department Care Team (Late st Contact Info) Description 10/07/2024 5:00 PM EDT [facility] [address] [place] [phone] Cheryl Robbins DDS [address] [place] [phone] documented as of this encounter Procedures Procedure Name Priority Date/Time Associated Diagnosis Comments OFFICE VISIT FOR OBSERVATION (DURING REGULARLY SCHEDULED HOURS) - NO OTHER SERVICES PERFORMED 07/01/2024 8:30 AM EDT Dental examination documented in this encounter Visit Diagnoses Diagnosis Dental examination- Primary documented in this encounter Care Teams Machine Whitener Relationship Specialty Start Date End Date Keyana Torrez [address] [place] [phone] PCP - PCP Assigned by Plan 05/10/24 Keyana Torrez [address] [place] [phone] PCP - General 07/01/24 Greg Tolbert MD [address] [place] [id number] Medicine - Endocrinology 04/13/22 Ricardo Jo MD [address] [place] [address] [address] [place] [address] Neurology 04/20/22 Dee Luna MD [address] [place] [address] Physical Medicine and Rehabilitation 05/04/22 Jayshree Kaiser Patient Navigator 07/01/24 07/01/24 documented as of this encounter
--- OUTSIDE RECORDS SUMMARY | 2024-07-04 16:49 | XMS_ITS | Data Portability ---
Author Organization [facility]ov[facility]IRGIL[facility]_U Address [address] [place] [address] Care Team Providers Care Newsroom Intern Name Role Phone JEREMY CARDENAS Referring Provider Assessment No assessment recorded. Plan of Treatment Reminders Order Date Submit Date Provider Last Modified By Organization Details Last Modified Time Details Appointments None recorded. Lab CMP, serum or plasma 2018 019 [facility] ([facility]), [address], [facility], [place], [address], 9 21:06:25 lipid panel, serum 2018 019 [facility] ([facility]), [address], [facility], [place], [address], 9 21:06:29 HbA1c (hemoglobin A1c), blood 2018 019 [facility] ([facility]), [address], [facility], [place], [address], 9 21:54:48 CBC w/ auto diff 2018 019 [facility] ([facility]), [address], [facility], [place], [address], 9 21:00:50 TSH, serum or plasma 2018 019 [facility] (8th Fl), [address], [address], [place], [address], 9 21:06:23 Referral neurologist referral - Please call and schedule patient with appointment information . ..Thank You!! 2018 019 latia 61 Kevin Chavez MD, [address], [place], [address], 9 09:47:47 Procedures None recorded. Surgeries None recorded. Imaging MRI, brain, w/wo contrast 2018 019 [facility], [place], [address], [place], [address], 9 17:02:06 Medication Orders None recorded. Patient TargetsNo targets recorded. Patient Instructions Encounter Date Encounter Id Patient Instructions Last Modified By Organization Details Last Modified Time 01/29/2019 [id number] body mass index: care instructions [email or web address] Not available 01/29/2019 16:19:11 learning about healthy weight [email or web address] Not available 01/29/2019 16:19:11 elevated blood pressure: care instructions Not available 01/29/2019 16:13:25 03/01/2019 [id number] body mass index: care instructions Not available 03/01/2019 16:20:36 learning about healthy weight [email or web address] Not available 03/01/2019 16:20:36 elevated blood pressure: care instructions [email or web address] Not available 03/01/2019 16:20:37 Reason for Referral Neurologist Referral for 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 ..Thank You!! Referring Physician: Jeremy Cardenas, Family Medicine, Encounter Date: 01/29/2019 Results Created Date Observation Date Name Description Value Unit Range Abnormal Flag Note LastModifiedBy Organization Detail LastModifiedTime 01/30/20 19 01/29/2019 CBC w/ auto diff WBC 9.5 x1000 /mm3 4.5-10 .3 Not Available [facility] (Lab) [address] [place], [address], 01/29/2019 21:00:50 01/30/20 19 01/29/2019 CBC w/ auto diff RBC 4.34 x1000 000/m m3 4.20-5 .40 Not Available [facility] (Lab) [address] [place], [address], 01/29/2019 21:00:50 01/30/20 19 01/29/2019 CBC w/ auto diff HGB 12.0 gm/dL 12.0-1 6.0 Not Available [facility] (Lab) [address] [place] [address], [address], 01/29/2019 21:00:50 01/30/20 19 01/29/2019 CBC w/ auto diff HCT 38.3 % 36.0-4 8.0 Not Available [facility] (Lab) [address] [place] [address], [address], 01/29/2019 21:00:50 01/30/20 19 01/29/2019 CBC w/ auto diff MCV 88 fL 78-98 Not Available [facility] (Lab) [address] [place] [address], [address], 01/29/2019 21:00:50 01/30/20 19 01/29/2019 CBC w/ auto diff MCH 27.6 pg 26.0-3 4.0 Not Available [facility] (Lab) [address] [place] [address], [address], 01/29/2019 21:00:50 01/30/20 19 01/29/2019 CBC w/ auto diff MCHC 31.3 gm/dL 32.0-3 6.0 low Not Available [facility] (Lab) [address] [place] [address], [address], 01/29/2019 21:00:50 01/30/20 19 01/29/2019 CBC w/ auto diff RDW 14.5 % 11.5-1 4.5 Not Available [facility] (Lab) [address] [place], [address], 01/29/2019 21:00:50 01/30/2001/29/2019 CBC w/ auto diff platelet 346 x1000 /mm3 150-50 0 Not Available [facility] (Lab) [address] [place], [address], 01/29/2019 21:00:50 01/30/2001/29/2019 CBC w/ auto diff diff type? Auto Diff Not Available [facility] (Lab) [address] [place], [address], 01/29/2019 21:00:50 01/30/2001/29/2019 TSH, serum or plasm a TSH 1.88 uIU/m L 0.35-5 .50 Not Available [facility] (Lab) [address] [place] [address], [address], 01/29/2019 21:06:23 01/30/2001/29/2019 CMP, serum or plasm a albumin 4.4 gm/dL 3.5-5. 0 Not Available [facility] (Lab) [address] [place] [address], [address], 01/29/2019 21:06:27 01/30/20 19 01/29/2019 CMP, serum or plasm a calcium, serum 9.4 mg/dL 8.7-10 .4 Not Available [facility] (Lab) [address] [place], [address], 01/29/2019 21:06:27 01/30/2001/29/2019 CMP, serum or plasm a T. protein 7.0 gm/dL 6.4-8. 3 Not Available [facility] (Lab) [address] [place], [address], 01/29/2019 21:06:27 01/30/2001/29/2019 CMP, serum or plasm a glucose level 75 mg/dL 74-106 Not Available [facility] (Lab) [address] [place], [address], 01/29/2019 21:06:27 01/30/20 19 01/29/2019 CMP, serum or plasm a BUN 20 mg/dL 6-20 Not Available [facility] (Lab) [address] [place], [address], 01/29/2019 21:06:27 01/30/2001/29/2019 CMP, serum or plasm a creatinine level 0.7 mg/dL 0.5-1. 2 Not Available [facility] (Lab) [address] [place], [address], 01/29/2019 21:06:27 01/30/20 19 01/29/2019 CMP, serum or plasm a bili total 0.2 mg/dL 0.2-1. 2 Not Available [facility] (Lab) [address] [place], [address], 01/29/2019 21:06:27 01/30/2001/29/2019 CMP, serum or plasm a alk phos 76 U/L 41-121 Not Available [facility] (Lab) [address] [place], [address], 01/29/2019 21:06:27 01/30/2001/29/2019 CMP, serum or plasm a AST 26 U/L 13-35 Not Available [facility] (Lab) [address] [place], [address], 01/29/2019 21:06:27 01/30/2001/29/2019 CMP, serum or plasm a sodium 140 mmol/ L 136-14 5 Not Available [facility] (Lab) [address] [place], [address], 01/29/2019 21:06:27 01/30/2001/29/2019 CMP, serum or plasm a potassium 4.0 mmol/ L 3.4-5. 1 Not Available [facility] (Lab) [address] [place] [address], [address], 01/29/2019 21:06:27 01/30/20 19 01/29/2019 CMP, serum or plasm a chloride 102 mmol/ L 98-110 Not Available [facility] (Lab) [address] [place] [address], [address], 01/29/2019 21:06:27 01/30/20 19 01/29/2019 CMP, serum or plasm a CO2 25 mmol/ L 21-32 Not Available [facility] (Lab) [address] [place] [address], [address], 01/29/2019 21:06:27 01/30/20 19 01/29/2019 CMP, serum or plasm a agap 13.0 Not Available [facility] (Lab) [address] [place], [address], 01/29/2019 21:06:27 01/30/20 19 01/29/2019 CMP, serum or plasm a ALT 29 U/L 7-35 Not Available [facility] (Lab) [address] [place], [address], 01/29/2019 21:06:27 01/30/20 19 01/29/2019 CMP, serum or plasm a glomerular filtration rate (MDRD) 120 mL/mi n/1.7 3_m2 The GFR is calcu lated using the MDRD formu la and is valid for adult s over 18 yea rs with adjus tment s for age, sex, and race. The calcu latio n is not valid for pa tient s on dialy sis or with rapid ly rodriguez ing kidne y funct ion. Patie nts with GFR less than 60 are defin ed as dominicin g chron ic kidne y disea se. A gradi ng syste m o f decre ased kidne y funct ion has been propo sed: 90 - 60 mild, 59 -30 moder ate, 29 -15 sever e. Not Available [facility] (Lab) [address] [place], [address], 01/29/2019 21:06:27 01/30/2001/29/2019 lipid panel , serum cholesterol 160 mg/dL <=200 Not Available [facility] (Lab) [address] [place], [address], 01/29/2019 21:06:30 01/30/2001/29/2019 lipid panel , serum triglyceride 101 mg/dL <=200 Not Available [facility] (Lab) [address] [place], [address], 01/29/2019 21:06:30 01/30/2001/29/2019 lipid panel , serum HDL 53 mg/dL 34-91 Not Available [facility] (Lab) [address] [place], [address], 01/29/2019 21:06:30 01/30/2001/29/2019 lipid panel , serum LDL 87 mg/dL 60-130 The equat ion being used in this calcu latio n is LDL=C HOLES TEROL -(HDL +(TRI GLYDE RID E/5)) Not Available [facility] (Lab) [address] [place], [address], 01/29/2019 21:06:30 01/30/2001/29/2019 lipid panel , serum cholesterol/ HDL ratio 3.0 TONE STERO L/HDL INTER PRETA TION: <4.0 = DECRE ASED CORON TAM RISK 4.1-5 .9 = AVERA GE CORON TAM RISK >6.0 = INCRE ASED CORON TAM RISK Not Available [facility] (Lab) [address] [place], [address], 01/29/2019 21:06:30 01/30/2001/29/2019 HbA1c (hemo globi n A1c), blood HGB A1C 6.2 % 4.5-6. 0 high Testi ng Perfo rmed at [facility], [address] [place] Not Available [facility] (Lab) [address] [place], [address], 01/29/2019 21:54:48 01/30/20 19 01/29/2019 HbA1c (hemo globi n A1c), blood estimated average glucose 131 mg/dL Not Available [facility] (Lab) [address] [place] [address], [address], 01/29/2019 21:54:48 01/30/2001/29/2019 wbc diff, auto, blood neut percent 51 % 53-74 low Not Available [facility] (Lab) [address] [place] [address], [address], 01/29/2019 21:00:53 01/30/20 19 01/29/2019 wbc diff, auto, blood lymph percent 38 % 18-42 Not Available [facility] (Lab) [address] [place] [address], [address], 01/29/2019 21:00:53 01/30/2001/29/2019 wbc diff, auto, blood mono percent 9 % 4-12 Not Available [facility] (Lab) [address] [place], [address], 01/29/2019 21:00:53 01/30/2001/29/2019 wbc diff, auto, blood eos percent 2 % 0-7 Not Available [facility] (Lab) [address] [place], [address], 01/29/2019 21:00:53 01/30/2001/29/2019 wbc diff, auto, blood baso percent 0 % 0-2 Not Available [facility] (Lab) [address] [place], [address], 01/29/2019 21:00:53 01/30/2001/29/2019 wbc diff, auto, blood neutro auto abs 4.8 x1000 /mm3 2.0-7. 6 Not Available [facility] (Lab) [address] [place] [address], [address], 01/29/2019 21:00:53 01/30/2001/29/2019 wbc diff, auto, blood lymph auto abs 3.6 x1000 /mm3 0.8-4. 3 Not Available [facility] (Lab) [address] [place] [address], [address], 01/29/2019 21:00:53 01/30/2001/29/2019 wbc diff, auto, blood mono auto abs 0.8 x1000 /mm3 0.2-1. 2 Not Available [facility] (Lab) [address] [place] [address], [address], 01/29/2019 21:00:53 01/30/2001/29/2019 wbc diff, auto, blood eos auto abs 0.1 x1000 /mm3 0.0-0. 7 Not Available [facility] (Lab) [address] [place] [address], [address], 01/29/2019 21:00:53 01/30/2001/29/2019 wbc diff, auto, blood basophil auto abs 0.0 x1000 /mm3 0.0-0. 2 Not Available [facility] (Lab) [address] [place] [address], [address], 01/29/2019 21:00:53 01/30/2001/29/2019 wbc diff, auto, blood Ig percent .40 % .00-.5 9 Not Available [facility] (Lab) [address] [place] [address], [address], 01/29/2019 21:00:53 01/30/2001/29/2019 wbc diff, auto, blood Ig auto abs .040 x1000 /mm3 .000-. 384 Not Available [facility] (Lab) [address] [place], [address], 01/29/2019 21:00:53 01/30/20 19 01/29/2019 .morp holog y check plt morphology Normal Not Available [facility] (Lab) [address] [place], [address], 01/29/2019 21:00:52 01/30/20 19 01/29/2019 .morp holog y check RBC morphology Normal Not Available [facility] (Lab) [address] [place], [address], 01/29/2019 21:00:52 Result Notes None recorded. Medical Equipment None Reported. Allergies No known drug allergies Medications Name Sig Start Date Stop Date Status Note LastModified by Organization Details LastModified Time olanzapine 5 mg tablet TAKE 1 TABLET BY MOUTH EVERYDAY AT BEDTIME 03/01 completed Not Available Not Available Not Available olanzapine 7.5 mg tablet TAKE 1 TABLET BY MOUTH TWICE DAILY 03/01 completed Not Available Not Available Not Available hydroxyzine HCl 25 mg tablet TAKE ONE TABLET BY MOUTH EVERY 6 HOURS NEEDED 03/01 completed Not Available Not Available Not Available olanzapine 20 mg tablet TAKE 1 TABLET BY MOUTH AT BEDTIME 03/01 completed Not Available Not Available Not Available hydroxyzine pamoate 25 mg capsule TAKE 1 CAPSULE BY MOUTH 3 TIMES DAILY NEEDED anxiety active Not Available Not Available No t Available duloxetine 20 mg capsule,del ayed release TAKE 1 CAPSULE BY MOUTH TWICE DAILY 03/01 completed Not Available Not Available Not Available duloxetine 30 mg capsule,del ayed release TAKE 1 CAPSULE BY MOUTH DAILY 03/01 completed Not Available Not Available Not Available duloxetine 60 mg capsule,del ayed release TAKE 1 CAPSULE BY MOUTH EVERY MORNING active Not Available Not Available No t Available Cymbalta 03/01 completed Not Available Not Available Not Available Latuda 40 mg tablet TAKE 1 TABLET BY MOUTH DAILY with food 03/01 completed Not Available Not Available Not Available Latuda 80 mg tablet TAKE 1 TABLET BY MOUTH DAILY with food active Not Available Not Available No t Available Latuda 03/01 completed Not Available Not Available Not Available Latuda 60 mg tablet TAKE 1 TABLET BY MOUTH DAILY with food 03/01 completed Not Available Not Available Not Available Vitals Date Recorded Body height Body mass index (BMI) Body weight Heart rate Oxygen saturation Oxygen saturation in Arterial blood by Pulse oximetry Body temperature Systolic blood pressure Diastolic blood pressure Provider Name and Address Organization Details Last Updated DateTime 9 162.56 cm 51.7 kg/m2 316774. 3 g 104 /min 98 % 98 % 98.5 [degF] 141 mm[Hg] 97 mm[Hg] Colin De La Rosa [facility] 9 15:45:00 Date Recorded Body height Body mass index (BMI) Body weight Body temperature Oxygen saturation Oxygen saturation in Arterial blood by Pulse oximetry Heart rate Systolic blood pressure Diastolic blood pressure Provider Name and Address Organization Details Last Updated DateTime 9 162.56 cm 50.6 kg/m2 574849. 75 g 98.7 [degF] 97 % 97 % 104 /min 142 mm[Hg] 90 mm[Hg] Colin De La Rosa [facility] 9 15:44:36 Social History Question Answer Notes LastModified by Blinkbug[employer] Details LastModified Time Tobacco Smoking Status Never Smoker [facility] 01/29/2019 15:42:58 Do You Have An Advance Directive? No Information not available 01/29/2019 What Is Your Level Of Alcohol Consumption? None Information not available 01/29/2019 What Is Your Level Of Caffeine Consumption? None Information not available 01/29/2019 Seat Belts Used Routinely Yes Information not available 01/29/2019 Do You Have Smoke And Carbon Monoxide Detectors In Your Home? No Information not available 01/29/2019 Are You Passively Exposed To Smoke? No Information not available 01/29/2019 Sex: Female Functional Status Question Answer Note LastModified by Blinkbug[employer] Details LastModified Time What is your exercise level? Occasional Information not available 01/29/2019 Mental Status None recorded. Family History Nothing Reported. Medical History Condition Response hypothyroidism N cancer N acid reflux/GERD N asthma N blood clots N diabetes mellitus N COPD N high cholesterol N heart problems N high blood pressure N Gynecological HistoryNo gynecological history recorded. Obstetrics History GPAL:G 0 P 0 0 0 0 Past Encounters Encounter ID Performer Location Encounter Start Date Encounter Closed Date Diagnosis/Indication Diagnosis SNOMED-CT Code Diagnosis ICD10 Code Diagnosis Note [id number] Jeremy Cardenas MD [facility]_ 8th_L [address] [address] 01/29/2019 15:25:34 01/29/2019 16:24:15 Chiari malformation 178160111 Q07.00 Postive hx with asociated headaches. Will obtain MRI and refer to neurology for management of headaches, could be HTN, intracrani al hypertensi on, stress, or possible sleep apnea. Elevated blood-pressure reading without diagnosis of hypertension 903845815 R03.0 Slightly elevated above goal, <140/90. Lifestyle modificati ons- exercise and diet. Endocrine/ metabolic screening 249180318 Z13.228 Body mass index 40+ - severely obese 354564401 Z68.43 Gained 110 lbs x 1 year. Attributes to being on Zyprexa, which was d/c about 6 months. [id number] Jeremy Cardenas MD [facility]_ 8th_L [address] [address] 03/01/2019 15:31:45 03/01/2019 17:08:58 Elevated blood-pressure reading without diagnosis of hypertension 065161006 R03.0 Slightly elevated above goal, <140/90. Lifestyle modificati ons- exercise and diet. F/u in 3 months. Body mass index 40+ - severely obese 486845456 Z68.43 Gained 110 lbs x 1 year, lost 6 lbs over the last 6 lbs. Attributes to being on Zyprexa, which was d/c about 7 months. Health Concerns Section Related Observation LastModified by Organization Detai ls LastModified Time None Recorded Concern Status LastModified by Organization Details LastModified Time None Recorded Advance Directives Directive N: Payers Encounter Date Sequence Insurance Name Policy Number Policy Wilson Covered Member ID Wilson Member ID Guarantor Name 01/29/2019 2 [employer] [place]AC[place] [id number] David Luna [id number] David Luna 01/29/2019 1 [employer] [place] - [place]MO) David Luna [id number] David Luna 03/01/2019 2 [employer] [place] [id number] David Luna [id number] David Luna 03/01/2019 1 [facility] (MEDICARE REPLACEMENT/AD VANTAGE - HMO) David Luna [id number] David Luna Notes Date Note Type Note Provider Name and Address Organization Details Recorded Time 01/29/2019 text/html 28 year AA femal e with PMH significant Chiari malformation that presents to [facility] care and further management of acute on chronic headache x 2 years-localized at the top of head and radiates to occipital region, pressure sensation, constant, trigger-feels like liquid is building up in head after eating meats-chicken or red meats, duration x 2 weeks. Denies change in vision, gait, or N/V. CT Head performed at [facility] 2 years ago. Jeremy Cardenas MD [address] [place] [address], [place], [address], [facility] 01/29/2019 16:23:39 03/01/2019 text/html 28 year AA femal e with PMH significant Chiari malformation that presents for elevated BP f/u. CT Head performed at [facility] 2 years ago. Jeremy Cardenas MD [address] [place] [address] [address], [place], [address], [facility] 03/01/2019 16:23:25 OBGyn Episode No OBEpisode recorded.
--- OUTSIDE RECORDS SUMMARY | 2024-07-04 16:49 | XMS_ITS | Clinical Summary ---
Author Organization [address] Address [address] [place] [phone] Care Team Providers Care Advertising Operations Coordinator Name Role Phone Keyana Torrez MD Primary Care Provider [phone] Allergies No known active allergies Medications No known medications Social History Tobacco Use Types Packs/Day Years Used Date Smoking Tobacco: Never Assessed Interpersonal Safety Answer Date Record ed Is there anyone in your life that is hurting or threatening you in anyway? no 02/22/2024 Physical Indicators of Abuse No evidence of phys ical abuse 02/22/2024 Comments Unknown Sex and Gender Information Value Date Recorded Sex Assigned at Not on file Legal Sex Female 11:29 PM EST Gender Identity Not on file Sexual Orientation Not on file Last Filed Vital Signs Vital Sign Reading Time Taken Comments Blood Pressure 123/82 02/23/2024 6:14 AM EST Pulse 80 02/23/2024 6:14 AM EST Temperature 36.3 ??C (97.4 ??F) 02/23/2024 6:14 AM ES T Respiratory Rate 18 02/23/2024 6:14 AM EST Oxygen Saturation 100% 02/23/2024 6:14 AM EST Inhaled Oxygen Concentration - - Weight - - Height - - Body Mass Index - - Plan of Treatment Health Maintenance Due Date Last Done Comments Hepatitis C screening 06/26/2007 Tetanus adult (Td q 10,TDAP once) 2009 Cervical cancer screening 2010 Covid-19 vaccine series ( season) 2023 Influenza vaccine 11/29/2024 RSV Immunization (1 - 1-dose 75+ series) 2064 HIV screening Completed 10/23/2021 Meningococcal Vaccine Aged Out No shanice ana eligible based on patient's age to complete this topic Pneumococcal Vaccine (2 - 49 years) Aged Out No longer eligible b ased on patient's age to complete this topic Insurance MGD MGD MGD Care Teams Advertising Operations Coordinator Relationship Specialty Start Date End Date Keyana Torrez MD [address] [place] [phone] PCP - General 02/23/24
--- OUTSIDE RECORDS SUMMARY | 2024-07-04 16:49 | XMS_ITS | Encounter Summary ---
Author Organization [facility], [facility], and [facility] Address [address] [facility]. [address]th [address] [place] [address] Care Team Providers Care Copyright Clerk Name Role Phone Greg Tolbert MD Unavailable Ricardo Jo MD Unavailable [phone] Dee Luna MD Unavailable [phone] Keyana Torrez Unavailable Jayshree Kaiser Unavailable Unavailable Keyana Torrez Primary Care Provider [phone] Reason for Visit * Reason Comments Back Pain Lower Back Pain s/p lifting her luggage Encounter Details Date Type Department Care Team (Late st Contact Info) Description 07/01/2024 8:09 PM EDT - 07/02/2024 12:56 AM EDT Emergency [facility] [address] [place] [address] Adina Tang MD [address] [place] [address] Back Pain (Lower Back Pain s/p lifting her luggage ) Discharge Disposition: Home or Self Care [...] place to sleep or slept in a fci (including now)? No 07/12/2022 Comments No Sex and Gender Information Value Date Recorded Sex Assigned at Female 04/12/2022 2:54 PM EST Legal Sex Female 3:04 PM EDT Gender Identity Female 04/12/2022 2:54 PM EST Sexual Orientation Not on file documented as of this encounter Last Filed Vital Signs Vital Sign Reading Time Taken Comments Blood Pressure 119/78 07/01/2024 8:10 PM EDT Pulse 100 07/01/2024 8:10 PM EDT Temperature 36.5 ??C (97.7 ??F) 07/01/2024 8:10 PM ED T Respiratory Rate 18 07/01/2024 8:10 PM EDT Oxygen Saturation 100% 07/01/2024 8:10 PM EDT Inhaled Oxygen Concentration - - Weight - - Height - - Body Mass Index - - documented in this encounter Discharge Instructions * Discharge Instructions* Adina Tang MD - 07/01/2024 8:42 PM EDT For back pain, please take tylenol 650 mg every 8 hours as needed. If you develop numbness, weakness, trouble controlling urine or feces, or any new symptoms, please seek medical attention documented in this encounter Medications at Time of Discharge acetaminophen (TYLENOL) 325 MG TabletIndications :Pain Take 1 tablet by mouth Every 6 Hours As Needed 30 tablet 3 acetaminophen (TYLENOL) 325 MG TabletIndications :Pain Take 1 tablet (325 mg) by mouth Every 6 Hours As Needed. 30 tablet 5 Aluminum-Magnesiu m-Simethicone 200-200-20 MG/5ML SuspensionIndicat ions:Gastric Hyperacidity [...] 1 05/03/2022 5:27 PM EST 3 nystatin 547636 UNIT/GM Powder powderIndications :Candidiasis Apply topically 2 [...] as of this encounter Progress Notes * Jeannie Conley - 07/02/2024 12:56 AM EDT SW/JERALD Progress / Reassessment Progress Note: Pt requested medicaid livery services- address Pt listed is [place] miles away from hospital. When inquired about local address Pt was evasive and said the only address she can go is [place], [place] or she was trying to get to [facility] to go to [place] as [facility] doesn't have the program sheis seeking for rehabilitation (did not specify what kind of rehabilitation). SW explained to Pt that the address Pt listed is not able to be approved and EMS stated they cannot arrange livery to a non-residential address. Pt was offered metrocard to train station or courtesy lyft to drop in center.Pt became upset and stated that this is a violation of her patient rights as she is unable to walk.AME consulted overnight nursing scheduler, and that since Pt is alert and oriented, she has capacity to make decisions and commute/transport herself to her desired location with/without hospital services and if Pt said she needs transport to get to her final destination then it is alright to schedule lyft. SW returned to waiting area where Pt was standing speaking to the security sergeant, SW communicated approval of lyft to [facility] and requested Pt to come outside to not miss the car. Pt becameupset asking why she has to wait outside. AME reiterated that it is to not miss the lyft as another one will not be scheduled if this one is missed. Pt grew upset and petulant and required security assistance to explain to Pt that she will not be left standing alone but SW will be outside to accompany her for safe transport but since Pt has a hard time walking, they need to be ready outside waiting. Pt, SW, and security sergeant had back and forth conversation until Pt finally agreed to wait outside for her pickling grader. Lyft arrived, Pt safely entered into car. SW remains available as needs arise. Modality: Stitcher Tape Controlled Machine Services: Caregiver: Reassessment Information: Substance Use: Barriers: Anticipated D/C Plan: Discharge Planning: Post-Discharge Planning: Dialysis/Infusion - Discharged on 07/02/2024 Admission date: 07/01/2024 - Discharge disposition: Home or Self Care No services have been selected for the patient. Home Medical Care - Discharged on 07/02/2024 Admission date: 07/01/2024 - Discharge disposition: Home or Self Care No services have been selected for the patient. Durable Medical Equipment - Discharged on 07/02/2024 Admission date: 07/01/2024 - Discharge disposition: Home or Self Care No services have been selected for the patient. Destination - Discharged on 07/02/2024 Admission date: 07/01/2024 - Discharge disposition: Home or SelfCare No services have been selected for the patient. No follow-up provider specified. Discharge Disposition (most recent) Disposition No documentation. Patient Education: Education No education to display User Sinclair Initials Effective Dates Name Provider Type Discipline 09/26/20 - 03/02/21 Lori Valle Drawing In Hand Social Work Electronic Signature: Jeannie Conley 07/02/2024 3:14 PM documented in this encounter Plan of Treatment Upcoming Encounters Date Type Department Care Team (Late st Contact Info) Description 10/07/2024 5:00 PM EDT Appointment [facility] [address] [place] [phone] Cheryl Robbins DDS [address] [place] [id number] Scheduled Orders Name Type Priority Associated Diagnoses Orde r Schedule URINE TEST (HCG U) Lab Emergency STAT STAT for 1 Occur rences starting 07/01/2024 until 07/01/2024 documented as of this encounter Visit Diagnoses Diagnosis Bilateral low back pain without sciatica, unspecified chronicity- Primary documented in this encounter Active and Recently Administered Medications Times are shown in EDT. Scheduled Medication Order 06/30/2024 07/01/2024 07/02/2024 acetaminophen (TYLENOL) tablet 650 mg 650 mg, Oral, Once, On Marce 07/01/24 at 2045, For 1 dose, Common Side Effects: Nausea, Vomiting, Indications: Pain 2105 (Not Given - Provider: James Mi RN - Reason: Patient refused- notify provider) documented in this encounter Care Teams Copyright Clerk Relationship Specialty Start Date End Date Keyana Torrez [address] [place] [address] PCP - PCP Assigned by Plan 05/10/24 Keyana Torrez [address] [place] [address] PCP - General 07/01/24 Greg Tolbert MD [address] [place] [address] Medicine - Endocrinology 04/13/22 Ricardo Jo MD [address] [place] [address] [address] [place] [address] Neurology 04/20/22 Dee Luna MD [address] [place] [phone] Physical Medicine and Rehabilitation 05/04/22 Jayshree Kaiser Patient Navigator 07/01/24 07/01/24 documented as of this encounter
--- OUTSIDE RECORDS SUMMARY | 2024-07-04 16:49 | XMS_ITS ---
Author Organization [facility], [facility], and [facility] Address [address] [facility]th [address] [place] [address] Care Team Providers Care Scrap Crusher Name Role Phone Greg Tolbert MD Unavailable Ricardo Jo MD Unavailable [phone] Dee Luna MD Unavailable [phone] Keyana Torrez Unavailable [phone] Keyana Torrez Primary Care Provider [phone] Patient Navigation Status:Do Not Enroll (Closed) Start date:06/20/2024 Enrollment reason:Identified using referral data End date:07/01/2024 Close reason:Could not Navigate Continued Care and Services Coordination
--- OUTSIDE RECORDS SUMMARY | 2024-07-04 16:50 | XMS_ITS | Encounter Summary ---
Author Organization [facility], [facility], and [facility] Address [address] [facility]. [address]th [address] [place] [address] Care Team Providers Care Hot Water Heater Installer Name Role Phone Greg Tolbert MD Unavailable Ricardo Jo MD Unavailable [phone] Dee Luna MD Unavailable [phone] Keyana Torrez Unavailable [phone] Jayshree Kaiser Unavailable Unavailable Keyana Torrez Primary Care Provider [phone] Reason for Visit * Reason Comments Back Pain Encounter Details Date Type Department Care Team (Late st Contact Info) Description 07/01/2024 12:34 AM EDT - 07/01/2024 3:11 AM EDT Emergency [facility] [address] [place] [phone] Back Pain Discharge Disposition: Home or Self Care Social [...] place to sleep or slept in a long-term (including now)? No 07/12/2022 Comments No Sex and Gender Information Value Date Recorded Sex Assigned at Female 04/12/2022 2:54 PM EST Legal Sex Female 3:04 PM EDT Gender Identity Female 04/12/2022 2:54 PM EST Sexual Orientation Not on file documented as of this encounter Last Filed Vital Signs Vital Sign Reading Time Taken Comments Blood Pressure 140/95 07/01/2024 12:57 AM EDT Pulse 95 07/01/2024 12:57 AM EDT Temperature 37 ??C (98.6 ??F) 07/01/2024 12:57 AM EDT Respiratory Rate 18 07/01/2024 12:57 AM EDT Oxygen Saturation 99% 07/01/2024 12:57 AM EDT Inhaled Oxygen Concentration - - Weight 113 kg (249 lb 1.9 oz) 07/01/2024 12:57 A M EDT Height - - Body Mass Index 42.76 06/21/2024 12:59 AM EDT documented in this encounter Medications at Time [...] 1 05/03/2022 5:27 PM EST 3 nystatin 315001 UNIT/GM Powder powderIndications :Candidiasis Apply topically 2 [...] g 5 documented as of this encounter ED Notes * Jaimie Castillo RN - 07/01/2024 1:00 AM EDT C/o lower back pain. I tried to lift something and strained my back documented in this encounter Plan of Treatment Upcoming Encounters Date Type Department Care Team (Holli irby Contact Info) Description 10/07/2024 5:00 PM EDT Appointment [facility] [address] [place] [address] [place] [phone] Cheryl Robbins, DDS [address] [place] [address] documented as of this encounter Visit Diagnoses Not on filedocumented in this encounter Care Teams Hot Water Heater Installer Relationship Specialty Start Date End Date Keyana Torrez [address] [place] [phone] PCP - PCP Assigned by Plan 05/10/24 Keyana Torrez [address] [place] [address] PCP - General 07/01/24 Greg Tolbert MD [address] [place] [id number] Medicine - Endocrinology 04/13/22 Ricardo Jo MD [address] [place] [address] [address] [place] [address] Neurology 04/20/22 Dee Luna MD [address] [place] [phone] Physical Medicine and Rehabilitation 05/04/22 Jayshree Kaiser Patient Navigator 07/01/24 07/01/24 documented as of this encounter
--- OUTSIDE RECORDS SUMMARY | 2024-07-04 16:50 | XMS_ITS | Clinical Summary ---
Author Organization [facility] Address [address] [place] [address] Care Team Providers Care Sociology Professor Name Role Phone Pcp, No Primary Care Provider Unavailabl e Allergies No known active allergies Medications No known medications Social History Tobacco Use Types Packs/Day Years Used Date Smoking Tobacco: Never Assessed Sex and Gender Information Value Date Recorded Sex Assigned at Female 02/22/2024 6:49 PM EST Gender Identity Female 02/22/2024 6:49 PM EST Sexual Orientation Heterosexual (straight) 02/21 6:49 PM EST Last Filed Vital Signs Vital Sign Reading Time Taken Comments Blood Pressure - - Pulse - - Temperature - - Respiratory Rate 15 02/22/2024 5:49 PM EST Oxygen Saturation - - Inhaled Oxygen Concentration - - Weight - - Height - - Body Mass Index - - Plan of Treatment Health Maintenance Due Date Last Done Comments Hepatitis C Virus Screening 1989 HIV Screening 2002 DTaP/Tdap/Td Vaccines (1 - Tdap) 2008 Hepatitis B Vaccines (1 of 3 - 19+ 3-dose series) 2008 Pap Smear (Ages 21-65) 2010 Influenza Vaccine 10/30/2023 COVID-19 Vaccine ( - 2023-2 5 season) 2023 HPV Vaccines Aged Out No longer eligi ble based on patient's age to complete this topic Pneumococcal Vaccine: Pediat juan (0-5 Years) and At-Risk Patients (6 to 49 Years) Aged Out No longer eligible b ased on patient's age to complete this topic Care Teams Sociology Professor Relationship Specialty Start Date End Date Pcp, No PCP - General General Medicine 02/22/24
--- OUTSIDE RECORDS SUMMARY | 2024-07-04 16:50 | XMS_ITS | Referral Summary ---
Author Organization [facility] Address [address] [place] [address] Care Team Providers Care Computing Machine Operator Name Role Phone Pcp, No Primary Care Provider Unavailabl e Allergies No known active allergies Medications Omeprazole 40 MG Oral Capsule Delayed Release (PRILOSEC) Take 40 mg by mouth daily 3 Active Sucralfate 1 GM Oral Tablet (CARAFATE) Take 1 g by mouth Four times daily Active Cetirizine HCl 10 MG Oral Tablet (ZYRTEC) Take 2 tablets by mouth daily 3 Active Fluticasone Propionate 50 MCG/ACT Nasal Suspension (FLONASE) 1 spray 3 Active RisperDAL Consta 12.5 MG Intramuscular Suspension Reconstituted ER INJECT 2 ML IN THE MUSCLE EVERY 14 DAYS Active Active Problems No known active problems Social History Tobacco Use Types Packs/Day Years Used Date Smoking Tobacco: Never Tobacco Cessation:Counseling Given: Not Answered Alcohol Use Standard Drinks/Week Comments Never 0 (1 standard drink = 0.6 oz pur e alcohol) Comments No Sex and Gender Information Value Date Recorded Sex Assigned at Not on file Legal Sex Female 6:32 PM EDT Gender Identity Not on file Sexual Orientation Not on file Last Filed Vital Signs Vital Sign Reading Time Taken Comments Blood Pressure 114/79 12/09/2023 11:02 PM EDT Pulse 99 12/09/2023 11:02 PM EDT Temperature 36.7 ??C (98.1 ??F) 12/09/2023 11:02 PM E DT Respiratory Rate 16 12/09/2023 11:02 PM EDT Oxygen Saturation 99% 12/09/2023 11:02 PM EDT Inhaled Oxygen Concentration - - Weight 117.9 kg (260 lb) 05/18/2023 5:13 PM EST Height 162.6 cm (5' 4 ) 05/18/2023 5:13 PM EST Body Mass Index 44.63 05/18/2023 5:13 PM EST Plan of Treatment Not on file Care Teams Computing Machine Operator Relationship Specialty Start Date End Date Pcp, [place] [address] PCP - General 05/20/23
--- OUTSIDE RECORDS SUMMARY | 2024-07-04 16:50 | XMS_ITS | Patient Health Record ---
Author Organization [facility] Address [address] [place] [address] Support Name Relationship Address Phone David Luna Guarantor Unknown [phone] Allergies No Known Allergies Reason For Referral No Information Medications Medication SIG (Take, Route, Frequency, Duration) Notes Start Date End Date Status Gabapentin Active Plan Of Treatment Pending Test Test Name Order Date EKG- ELECTROCARDIOGRAM 07/07/2022 Insurance Providers Payer Name Payer Address Payer Phone Subscriber Number Group Number Insured Name Patient Relationship to Insured Coverage Start Date Coverage End Date [facility] [address] [place] [address] [id number] David Luna Self - patient is the insured [employer] [place] [address] [place] [address] [id number] David Luna Self - patient is the insured Medical (General) History Medical History History ICD Code asthma
--- OUTSIDE RECORDS SUMMARY | 2024-07-04 16:50 | XMS_ITS | Clinical Summary ---
Author Organization [facility], [facility], and [facility] Address [address] [facility]. [address]th [address] [place] [address] Care Team Providers Care Pest Control Pilot Name Role Phone Greg Tolbert MD Unavailable Ricardo Jo MD Unavailable Dee Luna MD Unavailable [phone] Keyana Torrez Unavailable [phone] Keyana Torrez Primary Care Provider Allergies Active Allergy Reactions Criticality Noted Date Comments Tilactase 01/10/2024 Honey 01/10/2024 Medications Aluminum-Magnesi um-Simethicone 200-200-20 MG/5ML SuspensionIndica tions:Gastric Hyperacidity Take 10 mL by mouth 4 Times a Day As Needed. Indications: Excess Stomach Acid 355 mL 01/11/20 21 Active hydrOXYzine 25 MG CapsuleIndicatio ns:SEDATIVE, HYPNOTIC, OR ANXIOLYTIC DISORDERS Take 1 capsule by mouth Every 8 Hours As Needed for anxiety for up to 14 days. Indications: SEDATIVE, HYPNOTIC, OR ANXIOLYTIC DISORDERS 42 capsule 12/16/19 22 Active Calcium Carbonate Antacid (MAALOX) 600 MG Tablet ChewableIndicati ons:Gastric Hyperacidity Take 1 tablet by mouth See Administration Instructions Take with food.. 90 tablet 03/13/20 22 Active ondansetron (ZOFRAN) 4 MG TabletIndication s:Nausea and Vomiting Take 1 tablet by mouth Every 8 Hours As Needed for nausea/vomiting. 20 tablet 03/13/20 22 Active gabapentin 600 MG Tablet Take 1 tablet by mouth 3 times a day 90 tablet 3 7:47 PM EST 04/26/19 23 Active cyclobenzaprine 5 MG TabletIndication s:Muscle Spasm Take 1 tablet by mouth 3 Times a Day As Needed for muscle spasms. 30 tablet 3 6:46 PM EST 05/01/19 23 Active lidocaine 4 % CreamIndications :Analgesia Apply topically as directed 15 g 1 3 5:27 PM EST 05/03/19 23 Active acetaminophen (TYLENOL) 325 MG TabletIndication s:Pain Take 1 tablet by mouth Every 6 Hours As Needed 30 tablet 05/20/19 23 Active famotidine (PEPCID) 20 MG TabletIndication s:Gastric Hyperacidity Take 1 tablet by mouth 2 Times a Day for 10 days 20 tablet 3 4:57 PM EDT 06/16/19 23 Active albuterol HFA 108 (90 Base) MCG/ACT Aerosol Solution inhalerIndicatio ns:Asthma Inhale 2 puffs Every 4 Hours As Needed for wheezing. 1 g 07/03/19 23 Active Aluminum-Magnesi um-Simethicone 200-200-20 MG/5ML SuspensionIndica tions:Gastric Hyperacidity Take 10 mL by mouth 4 Times a Day As Needed. 335 mL 07/11/19 23 Active pantoprazole 20 MG Tablet DRIndications:Ga stric Hyperacidity Take 1 tablet by mouth Daily 30 mins Before Breakfast. 30 tablet 07/11/19 23 Active predniSONE 20 MG Tablet Take 2 tablets by mouth daily x 3 days. Take with food. 6 tablet 3 12:04 PM EDT 07/03/19 23 Active ofloxacin otic solution 0.3 % Solution otic solutionIndicati ons:Bacterial Eye Infection Administer 5 drops into affected ear(s) Daily. 5 mL 01/10/20 24 Active Zinc Oxide 10 % OintmentIndicati ons:Moist Skin Apply topically 2 Times a Day. 85 g 05/23/19 25 Active fluticasone 50 MCG/ACT Suspension nasal sprayIndications :Nasal Congestion Use 2 sprays Daily. 16 g 05/26/19 25 Active diphenhydrAMINE (BENADRYL ALLERGY) 25 MG CapsuleIndicatio ns:Allergy Disorder Take 1 capsule (25 mg) by mouth Nightly As Needed for itching for up to 14 days. 14 capsule 05/26/19 25 Active oxymetazoline 0.05 % Solution nasal sprayIndications :Nasal Congestion 2 sprays nasally 2 Times a Day. 30 mL 05/26/19 25 Active hydrophor OintmentIndicati ons:Skin Rash,apply behind knees 2 per day Apply topically Daily As Needed. 60 g 06/04/19 25 Active nystatin 584691 UNIT/GM Powder powderIndication s:Candidiasis Apply topically 2 Times a Day. 15 g 06/04/19 25 Active acetaminophen (TYLENOL) 325 MG TabletIndication s:Pain Take 1 tablet (325 mg) by mouth Every 6 Hours As Needed. 30 tablet 07/02/19 25 Active cephalexin 500 MG CapsuleIndicatio ns:Antimicrobial Therapy Take 1 capsule (500 mg) by mouth 4 Times a Day for 10 days. 40 capsule 06/09/19 25 025 Active Problems Problem Noted Date Diagnosed Date Schizoaffective disorder, bipolar type 2 Malingering 05/11/2021 Personality disorder 05/11/2021 Resolved Problems Problem Noted Date Diagnosed Date Resolved Date Schizophrenia, undifferentiated 05/11/2021 12/15/2021 Encounters Date Type Department Care Team Description 07/01/2024 8:09 PM EDT - 07/02/2024 12:56 AM EDT Emergency [facility] [address] [place] [phone] Adina Tang MD Back Pain (Lower Back Pain s/p lifting her luggage ) Discharge Disposition: Home or Self Care 07/01/2024 8:28 AM EDT - 07/01/2024 8:08 PM EDT Hospital Encounter [facility] [address] [place] [address] [place] [phone] Yajaira Danielle DDS Consult ( I'd like to get a cleaning done. I don't really have any pain ) Discharge Disposition: Home or Self Care 07/01/2024 12:34 AM EDT - 07/01/2024 3:11 AM EDT Emergency [facility] [address] [place] [phone] Back Pain Discharge Disposition: Home or Self Care 06/21/2024 2:05 AM EDT - 06/21/2024 3:37 AM EDT Emergency [facility] [address] [place] [phone] Gilles Galloway MD vertigo Discharge Disposition: Home or Self Care 06/20/2024 8:20 PM EDT - 06/20/2024 8:53 PM EDT Emergency [facility] Emergency Room [address] [place] [phone] Meeta Vincent MD Headache Discharge Disposition: Home or Self Care 06/10/2024 7:05 PM EDT - 06/10/2024 10:58 PM EDT Emergency [facility] Emergency Room [address] [place] [phone] Headache; Requesting Social Work Discharge Disposition: Home or Self Care 06/07/2024 9:10 PM EDT - 06/08/2024 2:19 AM EDT Emergency [facility] Emergency [address] [place] [phone] OTHER (Traveling on train for 3 hrs leg hurts) Discharge Disposition: Home or Self Care 06/05/2024 6:41 AM EST - 06/05/2024 1:24 PM EST Emergency [facility] Emergency Room [address] [place] [phone] Mohinder Olivares MD Abdominal Pain; Leg Swelling; heavy period Discharge Disposition: Home or Self Care 06/03/2024 2:25 PM EST - 06/03/2024 4:42 PM EST Emergency [facility] Emergency Room [address] [place] [phone] Christina Rizzo MD Rash Discharge Disposition: Home or Self Care 06/02/2024 10:44 PM EST - 06/03/2024 1:36 AM EST Emergency [facility] [address] [place] [phone] Aslhey Masno MD Dizziness Discharge Disposition: Home or Self Care 06/02/2024 1:22 PM EST - 06/02/2024 2:15 PM EST Emergency [facility] [address] [place] [phone] Zoran Tejada MD Rash (Rash for 3 days ) Discharge Disposition: Home or Self Care 06/02/2024 7:37 AM EST - 06/02/2024 9:41 AM EST Emergency [facility] [address] [place] [phone] Discharge Disposition: Home or Self Care 06/02/2024 3:05 AM EST - 06/02/2024 7:09 AM EST Emergency [facility] [address] [place] [phone] Jean Paul Novak MD Rash (Pt was called so many times but was sleeping requested to be seen in fast track. C/o rash to lateral right back and leg x 3 -4 days) Discharge Disposition: Home or Self Care 05/26/2024 8:20 AM EST - 05/26/2024 10:31 AM EST Emergency [facility] Emergency [address] [place] [phone] Nasal Congestion Discharge Disposition: Home or Self Care 05/25/2024 4:29 AM EST - 05/25/2024 10:10 AM EST Emergency [facility] [address] [place] [phone] Larry Linares MD Nasal congestion; left leg pain Discharge Disposition: Home or Self Care 05/23/2024 9:37 PM EST - 05/23/2024 11:54 PM EST Emergency [facility] [address] [phone] Alise Cesar MD Rash Discharge Disposition: Home or Self Care 05/23/2024 12:21 AM EST - 05/23/2024 10:59 AM EST Emergency [facility] [address] [place] [phone] Jean Paul Novak MD Visconti, Annette, MD Psychiatric Evaluation Discharge Disposition: Home or Self Care 05/10/2024 11:48 PM EST - 05/11/2024 4:44 AM EST Emergency [facility] [address] [place] [phone] Vicente Cross MD Swollen legs (As pt stated started today, no injury or trauma.) Discharge Disposition: Home or Self Care from Last 3 Months Family History Medical History Relation Comments No known problem No History Relation Status Comments Brother Alive Father Alive Mother Alive Sister Alive Social History Tobacco Use Types Packs/Day Years Used Date Smoking Tobacco: Never Passive Smoke Exposure: Never Smokeless Tobacco: Never Tobacco Cessation:Counseling Given: Not Answered [...] place to sleep or slept in a intermediate (including now)? No 07/12/2022 Comments No Sex and Gender Information Value Date Recorded Sex Assigned at Female 04/12/2022 2:54 PM EST Legal Sex Female 3:04 PM EDT Gender Identity Female 04/12/2022 2:54 PM EST Sexual Orientation Not on file Last Filed [...] oz) 07/01/2024 12:57 A M EDT Height 162.6 cm (5' 4 ) 06/21/2024 12:59 AM EDT Body Mass Index 42.76 06/21/2024 12:59 AM EDT Plan of Treatment Upcoming Encounters Date Type Department Care Team (Late st Contact Info) Description 10/07/2024 5:00 PM EDT Appointment [facility] [address] [place] [phone] Cheryl Robbins, DDS [address] [place] [phone] Health Maintenance Due Date Last Done Comments Dental Oral Exam 1989 Dental Prophylaxis 1989 HIV SCREENING 2002 Hepatitis C screening 06/26/2007 IMM: DTap/ Tdap/ Td (1 - Tdap) 2008 Cervical Cancer Screening 06/26/2019 HPV/Cotest 06/26/2019 Pap Smear 06/26/2019 COVID-19 Vaccine ( - 2023-2 5 season) 2023 IMM: Influenza (#1) 2023 LIPID SCREENING 2024 IMM: RSV (1 - 1-dose 75+ series) 2064 IMM: Meningococcal B Aged Out No long er eligible based on patient's age to complete this topic Pneumococcal Vaccine: Pediat rics (0 to 5 Years) and At-Risk Patients (6 to 49 Years) Aged Out No longer eligible b ased on patient's age to complete this topic Procedures Procedure Name Priority Date/Time Associated Diagnosis Comments OFFICE VISIT FOR OBSERVATION (DURING REGULARLY SCHEDULED HOURS) - NO OTHER SERVICES PERFORMED 07/01/2024 8:30 AM EDT Dental examination US VENOUS LOWER EXTREMITY - BILATERAL Urgent 06/07/2024 11:15 PM EDT Leg swelling GLUCOSE WHOLE BLOOD METER POC Routine 06/02/2024 10:34 PM EST from Last 3 Months Results * US Venous Lower Extremity - Bilateral (06/07/2024 11:15 PM EDT) Anatomical Region Laterality Modality Lower Extremities Bilateral Ultrasound 06/07/2024 10:4 2 PM EDT Impressions 06/08/2024 1:02 AM EDT No evidence of deep vein thrombosis in the examined venous segments bilaterally from the common femoral to the distal popliteal vein level. THIS DOCUMENT HAS BEEN ELECTRONICALLY SIGNED BY VRAD PROVIDER MARISA ZARAGOZA MD ON 06/08/2024 01:02 AM Narrative 06/08/2024 1:02 AM EDT PROCEDURE INFORMATION: Exam: US Duplex Lower Extremity Veins, Bilateral Exam date and time: 06/07/2024 10:42 PM Age: 33 years old Clinical indication: Other specified soft tissue disorders; Pain; Leg, lower; Bilateral; Additional info: Lower extremity swelling, left TECHNIQUE: Imaging protocol: Real-time duplex ultrasound of the bilateral extremities with 2-D kwon scale, color Doppler flow and spectral waveform analysis including responses to compression and other maneuvers (when performed) with image documentation. Complete exam focused on the lower extremity veins. COMPARISON: US VENOUS LOWER EXTREMITY - BILATERAL 01/02/2024 1:53 AM FINDINGS: Right deep veins: Unremarkable. The common femoral, femoral, proximal profunda femoral and popliteal veins are patent without thrombus. Normal Doppler waveforms. Normal compressibility and/or augmentation response. ??Calf veins are not assessed. Left deep veins: Unremarkable. The common femoral, femoral, proximal profunda femoral and popliteal veins are patent without thrombus. Normal Doppler waveforms. Normal compressibility and/or augmentation response. ??Calf veins are not assessed. ?? Superficial veins: Greater saphenous veins at the saphenofemoral junctions are patent bilaterally without thrombus. Soft tissues: Unremarkable. Procedure Note Marisa Zaragoza - 06/08/2024 PROCEDURE INFORMATION: Exam: US Duplex Lower Extremity Veins, Bilateral Exam date and time: 06/07/2024 10:42 PM Age: 33 years old Clinical indication: Other specified soft tissue disorders; Pain; Leg,lower; Bilateral; Additional info: Lower extremity swelling, left TECHNIQUE: Imaging protocol: Real-time duplex ultrasound of the bilateral extremitieswith 2-D kwon scale, color Doppler flow and spectral waveform analysisincluding responses to compression and other maneuvers (when performed) with image documentation. Complete exam focused on the lower extremity veins. COMPARISON: US VENOUS LOWER EXTREMITY - BILATERAL 01/02/2024 1:53 AM FINDINGS: Right deep veins: Unremarkable. The common femoral, femoral, proximalprofunda femoral and popliteal veins are patent without thrombus. Normal Doppler waveforms. Normal compressibility and/or augmentation response. Calfveins are not assessed. Left deep veins: Unremarkable. The common femoral, femoral, proximalprofunda femoral and popliteal veins are patent without thrombus. Normal Doppler waveforms. Normal compressibility and/or augmentation response. Calfveins are not assessed. Superficial veins: Greater saphenous veins at the saphenofemoral junctionsare patent bilaterally without thrombus. Soft tissues: Unremarkable. IMPRESSION: No evidence of deep vein thrombosis in the examined venous segmentsbilaterally from the common femoral to the distal popliteal vein level. THIS DOCUMENT HAS BEEN ELECTRONICALLY SIGNED BY VRAD PROVIDER MD ADELE ON 06/08/2024 01:02 AM Nikki ALEMAN IMG US PROCEDURES Final Result * GLUCOSE WHOLE BLOOD METER POC (06/02/2024 10:34 PM EST) [facility] Glucose Whole Blood Meter POC 94 65 - 95 mg/dL 06/02/2024 10:34 PM EST [facility] Blood 06/02/2024 10:3 4 PM EST 06/02/2024 10:36 PM EST Narrative Resulting Agency Comment GlWBMetPOC Provider Unknown LAB-POINT OF CARE Final Result [facility] [address] [address] [facility] [address] [address] from Last 3 Months Insurance MEDICAID [id number] * Guarantor: David Luna Account Type Relation to Patient Date of Phone Billing Address Personal/Family Self [address] [place] [address] [employer] MEDICARE MEDICAID [employer] Member Subscriber Plan / Payer (Ef fective 2023-Present) Name:David Luna Member ID:[id number] Relation to Subscriber:Self Name:Jeremy Fortinoarlette Subscriber ID:[id number] Payer ID:[id number] Group ID:Not on file Type:Medicaid Address: [place] [id number] * Guarantor: David Luna Account Type Relation to Patient Date of Phone Billing Address Personal/Family Self [address] [place] [address] [employer] MEDICARE MEDICAID [employer] * Guarantor: David Luna Account Type Relation to Patient Date of Phone Billing Address Dental Self [address] [place] [address] MEDICAID [employer] Member Subscriber Plan / Payer (Ef fective 2023-Present) Name:David Luna Member ID:[id number] Relation to Subscriber:Self Name:David Luna Subscriber ID:[id number] Payer ID:[id number] Group ID:Not on file Type:Medicaid Address: [place] [id number] [employer] MEDICARE Advance Directives Documents on File Type Date Recorded Patient Drug Coordinator Expl anation Advance Directives 05/12/2021 7:17 AM cons tant observation behavior log Care Teams Pest Control Pilot Relationship Specialty Start Date End Date Keyana Torrez [address] [place] [phone] PCP - PCP Assigned by Plan 05/10/24 Keyana Torrez [address] [place] [address] PCP - General 07/01/24 Greg Tolbert MD [address] [place] [phone] Medicine - Endocrinology 04/13/22 Ricardo Jo MD [address] [place] [address] [address] [place] [address] Neurology 04/20/22 Dee Luna MD [address] [place] [phone] Physical Medicine and Rehabilitation 05/04/22
--- OUTSIDE RECORDS SUMMARY | 2024-07-04 16:50 | XMS_ITS | Clinical Summary ---
Author Organization [facility] Address [address] [place] [phone] Care Team Providers Care Director Of Marketing Analytics Name Role Phone Pcp, No Primary Care [...] 05/18/2023 5:13 PM EST Plan of Treatment Health Maintenance Due Date Last Done Comments MMR Vaccines (1 of 1 - Stand kia series) 1990 HIV Screening 2002 Varicella Vaccines (1 of 2 - 13+ 2-dose series) 2002 DTaP,Tdap,and Td Vaccines (1 - Tdap) 06/26/2007 Hepatitis C Screening 06/26/2007 Hepatitis B Vaccines (1 of 3 - 19+ 3-dose series) 2008 Cervical Cancer Screening 3 years 2010 COVID-19 Vaccine ( - 2023-2 5 season) 2023 Influenza Vaccine 11/29/2024 HIB Vaccines Aged Out No longer eligi ble based on patient's age to complete this topic HPV Vaccines Aged Out No longer eligi ble based on patient's age to complete this topic Hepatitis A Vaccines Aged Out No long er eligible based on patient's age to complete this topic IPV Vaccines Aged Out No longer eligi ble based on patient's age to complete this topic Meningococcal Vaccine Aged Out No shanice ana eligible based on patient's age to complete this topic Pneumococcal Vaccine: Pediat rics (0 to 5 Years) and At-Risk Patients (6 to 49 Years) Aged Out No longer eligible b ased on patient's age to complete this topic RSV Immunization under 20 months Aged Out No longer eligible based on patient's age to complete this topic Care Teams Director Of Marketing Analytics Relationship Specialty Start Date End Date Pcp, No No Address [place] [address] PCP - General 05/20/23
--- OUTSIDE RECORDS SUMMARY | 2024-07-04 16:50 | XMS_ITS | Clinical Summary ---
Author Organization [facility] Address [address] [place] [phone] Phone Care Team Providers Care Can Coverer Name Role Phone Keyana Nguyen MD Primary Care Provider [phone] Allergies Active Allergy Reactions Criticality Noted Date Comments Acetaminophen Rash Low 08/16/2017 Pt reports I was going through something. I have no allergies Aspirin Rash Low 08/16/2017 Diphenhydramine Hcl Rash Low 08/16/2017 Egg White Nausea Only Medium 11/09/2020 Ibuprofen Rash Low 08/16/2017 Medications fluticasone propionate (FLONASE) 50 mcg/actuation nasal spray Administer 1 spray into each nostril 2 (two) times a day. Shake gently. Before first use, prime pump. After use, clean tip and replace cap. 16 g 3 Active Additional Information Patient taking differently: 2 sprayEach NostrilDaily, Shake gently. Before first use, prime pump. After use, clean tip and replace cap., Reported on 03/13/2023 sucralfate (CARAFATE) 1 gram tablet Take 1 tablet (1 g total) by mouth 4 (four) times a day. Active omeprazole (PriLOSEC) [address] capsule Take 1 capsule (40 mg total) by mouth. Do not crush or chew. Active cetirizine (ZyrTEC) 10 mg tablet Take 2 tablets (20 mg total) by mouth 1 (one) time each day. Active risperiDONE microspheres (RisperDAL CONSTA) 12.5 mg/2 mL injection Inject 12.5 mg into the shoulder, thigh, or buttocks every 14 (fourteen) days. Active QUEtiapine (SEROquel) 300 mg tablet Take 1 tablet (300 mg total) by mouth at bedtime. 30 each 1 3 Active aluminum-magnesi um hydroxide-simeth icone (MAALOX) 200-200-20 mg/5 mL suspension Take 15 mL by mouth 4 (four) times a day (before meals and nightly). 354 mL 4 Active Additional Information Patient not taking.Reported on 06/23/2024 Active Problems Problem Noted Date Diagnosed Date Schizoaffective disorder 03/14/2023 Encounters Date Type Department Care Team Description 06/23/2024 7:16 AM EDT - 06/23/2024 8:49 AM EDT Emergency [facility] Emergency Department [address] [place] [phone] Nick Figueredo MD Nonintractable headache, unspecified chronicity pattern, unspecified headache type (Primary Dx) Discharge Disposition: Home or Self Care 05/13/2024 9:03 PM EST - 05/14/2024 12:05 AM [facility] Emergency [facility] Emergency [address] [place] [phone] Dry mouth (Primary Dx) Discharge Disposition: Home or Self Care 05/09/2024 6:06 PM EST - 05/09/2024 6:21 PM [facility] Emergency [facility] Emergency Department [address] [place] [phone] Discharge Disposition: Home or Self Care 04/28/2024 9:01 PM EST - 05/01/2024 2:05 PM [facility] Emergency [facility] Emergency Department [address] [place] [phone] Discharge Disposition: Home or Self Care from Last 3 Months Medical History Medical History Date Comments Schizoaffective disorder (CMS/HCC) Stomach ulcer pt denies, acid reflux from apple juice Social History Tobacco Use Types Packs/Day Years Used Date Smoking Tobacco: Never Smokeless Tobacco: Never Tobacco Cessation:Counseling Given: Not Answered Alcohol Use Standard Drinks/Week Comments Never 0 (1 standard drink = 0.6 oz pur e alcohol) Financial Risk Answer Date Recorded How hard is it for you to pa y for the very basics like food, housing, medical care, and air conditioning / heating? Not very hard 01/17/2023 Interpersonal Safety Answer Date Record ed Physical Abuse 01/17/2023 Verbal Abuse 01/17/2023 Comments No Sex and Gender Information Value Date Recorded Sex Assigned at Female 02/12/2024 10:29 PM EST Legal Sex Female 8:38 PM EDT Gender Identity Female 02/12/2024 10:29 PM EST Sexual Orientation Choose not to disclose 2023 10:29 PM EST Obstetrics History Last Filed Vital Signs Vital Sign Reading Time Taken Comments Blood Pressure 126/86 06/23/2024 8:12 AM EDT Pulse 91 06/23/2024 8:12 AM EDT Temperature 36.6 ??C (97.9 ??F) 05/13/2024 8:57 PM ES T Respiratory Rate 18 06/23/2024 8:12 AM EDT Oxygen Saturation 100% 06/23/2024 8:12 AM EDT Inhaled Oxygen Concentration - - Weight 136 kg (300 lb) 06/23/2024 8:12 AM EDT Height 157.5 cm (5' 2 ) 06/23/2024 8:12 AM EDT Body Mass Index 54.87 06/23/2024 8:12 AM EDT Plan of Treatment Health Maintenance Due Date Last Done Comments DTaP,Tdap,and Td Vaccines (1 - Tdap) 2008 Hepatitis B Vaccines (1 of 3 - 19+ 3-dose series) 2008 Cervical Cancer Screening: P ap Smear 2010 Cholesterol Screening (Lipid Panel) 08/14/2022 Depression Screening 08/14/2022 HIV Screening 08/14/2022 Hepatitis C Screening 08/14/2022 Medicare Annual Wellness Visit 08/14/2022 Social Influencers of Health Screening 08/14/2022 COVID-19 Vaccine ( - 2023-2 5 season) 2023 Influenza Vaccine (Season Ended) 2024 HIB Vaccines Aged Out No longer eligi [...] on patient's age to complete this topic MMR Vaccines Aged Out No longer eligi ble based on patient's age to complete this topic Meningococcal ACWY Vaccine Aged Out N o longer eligible based on patient's age to complete this topic Meningococcal B Vacine Aged Out No lo nger eligible based on patient's age to complete this topic Pneumococcal Vaccine: Pediat rics (0 to 5 Years) and At-Risk Patients (6 to 64 Years) Aged Out No longer eligible b ased on patient's age to complete this topic RSV Immunization Patients Un chase 20 months Aged Out No longer eligible b ased on patient's age to complete this topic Varicella Vaccines Aged Out No longer eligible based on patient's age to complete this topic Insurance MEDICARE [facility] MEDICAID Advance Directives * Full Code - Default (Latest Code Status on File) Date Activated Date Inactivated Comments 03/14/2023 2:33 AM 03/15/2023 1:05 PM This is or chase is used when code status has not been discussed with the patient, or code status is otherwise unknown/unconfirmed To update the patient's code status, place a code status order. Do not modify or discontinue any currently active code status orders. Care Teams Can Coverer Relationship Specialty Start Date End Date Keyana Nguyen MD [address] [place] [phone] PCP - General Family Medicine 01/19/23
== END 2024-07-04 17:43 | disposition left against medical advice (07) ==
LOC: HO.ED 16:46
PROVIDERS: Emergency Provider Emergency Medicine
DX: M54.50 Low back pain, unspecified (principal)
CPT/HCPCS: 99281

== ENCOUNTER 2024-07-04 17:37 | Emergency (ER) | payer MEDICARE, SELFPAY ==
[2024-07-04 17:55] VITALS: BP 142/83; PULSE 93; RESP 20; TEMP 36.2; O2SAT 99; BMI 56.6
--- NOTE | 2024-07-04 18:32 | PC.NURSE ---
this nurse with the assistance of security escorted the patient back to the pod area, upon entering the [facility] and the doors closed, we opened the pod door and the patient was refusing to enter through to the pod, this nurse and security attempted to reason with the patient that she would be seen by a provider once she entered the pod area. the patient refused. this nurse then tiger texted the charge nurse as well as the PIT provider telling them we needed assistance as we were stuck in the [facility] with the patient arguing with security about going into the pod when she came in for back pain. The patient states she wants the hospital to pay for her to get back to her home in [facility]- stated she needed a way to get to the train. The patient was insistent that she was fine and that she didnt want to be seen. The provider offered the patient assistance to have her stay with us for the night so that we could have her seen and work out an appropriate discharge. The patient again declined and asked to discharge. Dr. Reid at this point decided the patient was able to discharge and leave the facility. This nurse exited the [facility] area, the provider finished his conversation with the patient and security escorted the patient out.
--- NOTE | 2024-07-04 18:34 | PC.NURSE ---
patient refusing to come into the pod, two security officers present along with book cleaner. Patient standing between [facility] doors. Anwer at patient side to speak about plan of care. After conversation, patient moved back to waiting room
--- NOTE | 2024-07-04 18:46 | PC.NURSE ---
patient discharged from waiting room, no new vitals obtained, pt alert, speaking in full sentences, rr equal/non labored.
--- NOTE | 2024-07-04 19:15 | ED.GENADULT ---
HPI - General Adult General Chief complaint: Behavioral Concerns Stated complaint: complaining of back pain was just discharged Time Seen by Provider: 07/04/24 18:34 Source: patient Mode of arrival: ambulatory Limitations: no limitations History of Present Illness ED Provider: HPI narrative: Patient is homeless for now been here multiple times was seen here on 02/22/2024 asking for the ticket for CAB services today also she came earlier was seen by the other provider for back pain and asking for the right take it to go to her home in [facility] patient had denied any psychiatric problems at this time does not want to see anybody at this time does not want to be evaluated saying that effect can not give her the right thickening does not know point to be in the ER as she looking for the take it to go home she does not want to think that she needs to be seen by care team /medical person Related Data Home Medications ?Medication ?Instructions ?Recorded ?Confirmed apixaban 5 mg tablet (Eliquis) 5 mg PO Q12H 07/04/24 07/04/24 fluticasone propionate 50 1 spray intranasal DAILY 07/04/24 07/04/24 mcg/actuation nasal spray,suspension risperidone 0.5 mg tablet 0.5 mg PO DAILY 07/04/24 07/04/24 Allergies Allergy/AdvReac Type Severity Reaction Status Date / Time No Known Allergies Allergy Verified 07/04/24 18:01 Review of Systems Review of Systems: Yes all other systems are reviewed and are negative PMFSH Social History Social History Do you have a plan to hurt others: No Plan Physical Exam ED Vital Signs: Vital Signs - 24 hr 07/04/24 17:55 Temperature 97.1 F Pulse Rate 93 Respiratory Rate 20 Blood Pressure 142/83 H Pulse Oximetry 99 Oxygen Delivery Method Room Air BMI result Body Mass Index 56.6 Appearance: Alert. Oriented X3. No acute distress. No short of breath ambulatory and holding the suitcase in her hand without any distress Patient has refused to be examined Medical Decision Making Medical Decision Making MDM Narrative: Patient nonspecific back pain comes here to get the voucher for the cab to go home which we told her we do not do that and she has had she will go to other hospital than does not want to stay here to be seen by care team or case management patient has a fairly competent and aware what been discussed denies any hallucination or delusions Discharge Plan Discharge Clinical Impression: Back pain Patient Disposition: Home, Self-Care Instructions: Back Pain (ED) Additional Instructions: Avoid standing for hours Take Tylenol for pain Prescriptions: No Action fluticasone propionate 50 mcg/actuation spray,suspension 1 spray intranasal DAILY risperidone 0.5 mg tablet 0.5 mg PO DAILY Eliquis 5 mg tablet 5 mg PO Q12H Print Language: Panamanian
--- OUTSIDE RECORDS SUMMARY | 2024-07-04 19:45 | XMS_ITS | Encounter Summary ---
Author Organization [facility], [facility], and [facility] Address [address] [facility]. [address]th [address] [place] [address] Care Team Providers Care Commodity Specialist Name Role Phone Greg Tolbert MD Unavailable Ricardo Jo MD Unavailable [phone] Dee Luna MD Unavailable [phone] Keyana Torrez Unavailable [phone] Jayshree Kaiser Unavailable Unavailable Keyana Torrez Primary Care Provider [phone] Reason for Visit * Reason Comments Consult I'd like to get a c leaning done. I don't really have any pain Encounter Details Date Type Department Care Team (Latest Contact Info) Description 07/01/2024 8:28 AM EDT - 07/01/2024 8:08 PM EDT Hospital Encounter [facility] [address] [place] [phone] Yajaira Danielle, DARRYL [address] [place] [address] Consult ( I'd like to get a [...] place to sleep or slept in a alf (including now)? No 07/12/2022 Comments No Sex [...] 1 05/03/2022 5:27 PM EST 3 nystatin 963042 UNIT/GM Powder powderIndications :Candidiasis Apply topically 2 [...] Hours As Neededfor wheezing. 1 g 0 Zgjrwjnk-Mjdikrnso-Oipqkwdoewb 200-200-20 MG/5ML Suspension Take 10 mL by mouth 4 Times a Day As Needed. Indications: Excess Stomach Acid 355 mL 0 Vmxlpvyi-Nliebxmlj-Aikmvwmynbi 200-200-20 MG/5ML Suspension Take 10 mL by [...] topically as directed 15 g 1 nystatin 248001 UNIT/GM Powder powder Apply topically 2 Times [...] a new patient exam with the front end loader operator Pt left ambulatory, satisfied and comfortable. All questions/concerns were addressed. ~Clinical note~ Patient Bill of Rights Given By Marriage Counselor Minister Staff~ Tx performed today: Dental procedures in [...] Info) Description 10/07/2024 5:00 PM EDT [facility] [address] [place] [phone] Cheryl Robbins DDS [address] [place] [address] documented as of this encounter Procedures Procedure Name Priority Date/Time Associated Diagnosis Comments OFFICE VISIT FOR OBSERVATION (DURING REGULARLY SCHEDULED HOURS) - NO OTHER SERVICES PERFORMED 07/01/2024 8:30 AM EDT Dental examination documented in this encounter Visit Diagnoses Diagnosis Dental examination- Primary documented in this encounter Care Teams Commodity Specialist Relationship Specialty Start Date End Date Keyana Torrez [address] [place] [phone] PCP - PCP Assigned by Plan 05/10/24 Keyana Torrez [address] [place] [phone] PCP - General 07/01/24 Greg Tolbert MD [address] [place] [address] Medicine - Endocrinology 04/13/22 Ricardo Jo MD [address] [place] [address] [address] [place] [address] Neurology 04/20/22 Dee Luna MD [address] [place] [address] Physical Medicine and Rehabilitation 05/04/22 Jayshree Kaiser Patient Navigator 07/01/24 07/01/24 documented as of this encounter
--- OUTSIDE RECORDS SUMMARY | 2024-07-04 19:45 | XMS_ITS | Clinical Summary ---
Author Organization [address] Address [address] [place] [phone] Care Team Providers Care Certified Dialysis Technician Name Role Phone Keyana Torrez MD Primary [...] topic Insurance MGD MGD MGD Care Teams Certified Dialysis Technician Relationship Specialty Start Date End Date Keyana Torrez MD [address] [place] [phone] PCP - General 02/23/24
--- OUTSIDE RECORDS SUMMARY | 2024-07-04 19:45 | XMS_ITS | Clinical Summary ---
Author Organization [facility] Address [address] [place] [address] Care Team Providers Care Information Systems Operator Name Role Phone Pcp, No Primary [...] age to complete this topic Care Teams Information Systems Operator Relationship Specialty Start Date End Date Pcp, No No Address [place] [address] PCP - General 05/20/23
--- OUTSIDE RECORDS SUMMARY | 2024-07-04 19:45 | XMS_ITS ---
Author Organization [facility], [facility], and [facility] Address [address] [facility]. [address]th [address] [place] [address] Care Team Providers Care Hand Suture Winder Name Role Phone Greg Tolbert MD Unavailable Ricardo Jo MD Unavailable [phone] Dee Luna MD Unavailable [phone] Keyana Torrez Unavailable [phone] Keyana Torrez Primary Care Provider [phone] Patient Navigation Status:Do Not Enroll (Closed) Start date:06/20/2024 Enrollment reason:Identified using referral data End date:07/01/2024 Close reason:Could not Navigate Continued Care and Services Coordination
--- OUTSIDE RECORDS SUMMARY | 2024-07-04 19:45 | XMS_ITS | Encounter Summary ---
Author Organization [facility], [facility], and [facility] Address [address] [facility] [place] [address] Care Team Providers Care Typer Name Role Phone Greg Tolbert MD Unavailable Ricardo Jo MD Unavailable [phone] Dee Luna MD Unavailable [phone] Keyana Torrez Unavailable [phone] Jayshree Kaiser Unavailable Unavailable Keyana Torrez Primary Care Provider [phone] Reason for Visit * Reason Comments Back Pain Encounter Details Date Type Department Care Team (Late st Contact Info) Description 07/01/2024 12:34 AM EDT - 07/01/2024 3:11 AM EDT Emergency [facility] [address] [place] [phone] Back Pain Discharge Disposition: Home or Self [...] 1 05/03/2022 5:27 PM EST 3 nystatin 205173 UNIT/GM Powder powderIndications :Candidiasis Apply topically 2 [...] Info) Description 10/07/2024 5:00 PM EDT Appointment [facility] [address] [place] [address] [place] [phone] Cheryl Robbins, DDS [address] [place] [address] documented as of this encounter Visit Diagnoses Not on filedocumented in this encounter Care Teams Typer Relationship Specialty Start Date End Date Keyana Torrez [address] [place] [phone] PCP - PCP Assigned by Plan 05/10/24 Keyana Torrez [address] [place] [address] PCP - General 07/01/24 Greg Tolbert MD [address] [place] [address] Medicine - Endocrinology 04/13/22 Ricardo Jo MD [address] [place] [address] [address] [place] [address] Neurology 04/20/22 Dee Luna MD [address] [place] [address] Physical Medicine and Rehabilitation 05/04/22 Jayshree Kaiser Patient Navigator 07/01/24 07/01/24 documented as of this encounter
--- OUTSIDE RECORDS SUMMARY | 2024-07-04 19:45 | XMS_ITS | Continuity of Care Document ---
Author Organization [facility] Address [address] [place] [address] Phone Care Team Providers Care Applied Exercise Physiologist Name Role Phone Erasto URI Lisa Unavailable [...] Provider Providers Copied on Encounter Office/outpa tient visit,[facility], [facility], [address] [place] [address], [id number], [place] tel:[phone] [facility] abdominal pain (chief complaint) Misc (chief complaint) Gastritis, unspecified, without bleedingBody mass index (BMI) 35.0-35.9, adultEncounter for screening for other viral diseases [address], [id number], [place]. tel:[phone] Preventive checkup, est,18-39 yrs [facility], [address] [place] [address], [id number], [place] tel:[phone] [facility] Physical (chief complaint) Routine Medical ExamMED EXAM NEC-ADMIN PURPSCREENING FOR MEASLESSCREENIN G FOR RUBELLASCREENIN G-POLIOMYELITIS SCREEN FOR CONDITION NOSTETANUS TOXOID INOCULATObesity , MorbidSCREENING -PULMONARY TBVACCINATION FOR DTP-DTAP 4 Barber Ramirez. [address], [id number], [place]. tel:[phone] Office/outpa tient visit,[facility], [address] [place] [address], [id number], [place] tel:[phone] [facility] sore throat (chief complaint) Pharyngitis, Acute 3 Brayden Brandt. [address] [place] [address], [id number], [place]. 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 has an xiety and currently on no meds. Reason For Referral Reason For Referral No Information Plan Of Treatment Date Type Action Status Goal PPD (TST). Due on 4 due Goal Tdap due Goal Breast MRI. Due on 16 due Goal COMPONENT TECHNICIAN exam. Due on due Goal PAP. Due on due Goal H&P. Due on due Goal Dental exam. Due on 016 due Goal Influenza vaccine. Due on due Goal Breast exam. Due on 016 due Goal Lifestyle education regardin g diet completed Goal HPV (1st). Due on 4 due Goal Tdap. Due on due Goal COMPONENT TECHNICIAN exam. Due on due Goal PAP. Due on due Goal Breast exam. Due on 013 due Goal H&P. Due on due Goal Td vaccine. Due on 14 due History Of Present Illness Encounter Date Complaint History Of Prese nt Illness [facility] Patient advised that she did a self cleanse and that she has not eat in 3-4 days. She is nauseated and has been vomiting. She has not been able to keep any fluids down. 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 has anxiety and currently on no meds. abdominal pain Onset: 3 Days. T he [...] her mouth. water taste bad. LMP: 11/24/2015. Functional Status Date Functional Assessmen t Pain [...] Mental Status Date Cognitive Assessment Orientation - Derry ed to time, place, person, situation. Patient Care Teams Name Effective Dates (start - stop) Status Members No Information
--- OUTSIDE RECORDS SUMMARY | 2024-07-04 19:45 | XMS_ITS | Encounter Summary ---
Author Organization [facility], [facility], and [facility] Address [address] [facility]. [address]th [address] [place] [address] Care Team Providers Care Bilingual Elementary School Teacher Name Role Phone Greg Tolbert MD Unavailable Ricardo Jo MD Unavailable [phone] Dee Luna MD Unavailable [phone] Keyana Torrez Unavailable [phone] Jayshree Kaiser Unavailable Unavailable Keyana Torrez Primary Care Provider [phone] Reason for Visit * Reason Comments Back Pain Lower Back Pain s/p lifting her luggage Encounter Details Date Type Department Care Team (Late st Contact Info) Description 07/01/2024 8:09 PM EDT - 07/02/2024 12:56 AM EDT Emergency [facility] [address] [place] [address] Adina Tang MD [address] [place] [address] Back Pain (Lower Back Pain [...] place to sleep or slept in a care home (including now)? No 07/12/2022 Comments No Sex [...] 1 05/03/2022 5:27 PM EST 3 nystatin [id number] UNIT/GM Powder powderIndications :Candidiasis Apply topically 2 [...] the only address she can go is [place], [place] or she was trying to get to [facility] to go to [place] as [facility] doesn't have the program sheis seeking for [...] is unable to walk.AME consulted overnight nursing assistant, and that since Pt is alert and oriented, she has capacity to make decisions and commute/transport herself to her desired location with/without hospital services and if Pt said she needs transport to get to her final destination then it is alright to schedule lyft. SW returned to waiting area where Pt was standing speaking to the security threat analyst, SW communicated approval of lyft to [facility] and requested Pt to come outside [...] ready outside waiting. Pt, SW, and security threat analyst had back and forth conversation until Pt finally agreed to wait outside for her knot picker cloth. Lyft arrived, Pt safely entered into car. SW remains available as needs arise. Modality: Business Intern Services: Caregiver: Reassessment Information: Substance Use: Barriers: [...] Type Discipline 09/26/20 - 03/02/21 Lori Valle Outside Installation Machinist Social Work Electronic Signature: Jeannie Conley 07/02/2024 3:14 PM documented in this encounter Plan of Treatment Upcoming Encounters Date Type Department Care Team (Late st Contact Info) Description 10/07/2024 5:00 PM EDT Appointment [facility] [address] [facility] [address] [place] [phone] Cheryl Robbins DDS [address] [place] [address] Scheduled Orders Name Type Priority Associated Diagnoses [...] provider) documented in this encounter Care Teams Bilingual Elementary School Teacher Relationship Specialty Start Date End Date Keyana Torrez [address] [place] [address] PCP - PCP Assigned by Plan 05/10/24 Keyana Torrez [address] [place] [address] PCP - General 07/01/24 Greg Tolbert MD [address] [place] [address] Medicine - Endocrinology 04/13/22 Ricardo Jo MD [address] [place] [address] [address] [place] [address] Neurology 04/20/22 Dee Luna MD [address] [place] [address] Physical Medicine and Rehabilitation 05/04/22 Jayshree Kaiser Patient Navigator 07/01/24 07/01/24 documented as of this encounter
--- OUTSIDE RECORDS SUMMARY | 2024-07-04 19:45 | XMS_ITS | Clinical Summary ---
Author Organization [facility] Address [address] [place] [address] Care Team Providers Care Slab Installer Name Role Phone Pcp, No Primary Care [...] age to complete this topic Care Teams Slab Installer Relationship Specialty Start Date End Date Pcp, No PCP - General General Medicine 02/22/24
--- OUTSIDE RECORDS SUMMARY | 2024-07-04 19:45 | XMS_ITS | Clinical Summary ---
Author Organization [facility] Address [address] [place] [phone] Phone Care Team Providers Care Health Center Associate Name Role Phone Keyana Nguyen MD Primary Care Provider [phone] Allergies Active Allergy Reactions Criticality Noted Date [...] Encounters Date Type Department Care Team Description 07/04/2024 7:29 PM EDT Emergency [facility] Emergency [address] [place] [address] 06/23/2024 7:16 AM EDT - 06/23/2024 8:[address] [facility] Emergency Department [address] [place] [phone] Nick Figueredo MD Nonintractable headache, unspecified chronicity pattern, unspecified headache type (Primary Dx) Discharge Disposition: Home or Self Care 05/13/2024 9:03 PM EST - 05/14/2024 12:05 AM EST Emergency [facility] Emergency [address] [place] [address] Dry mouth (Primary Dx) Discharge Disposition: Home or Self Care 05/09/2024 6:06 PM EST - 05/09/2024 6:[address] [facility] Emergency Department [address] [place] [phone] Discharge Disposition: Home or Self Care 04/28/2024 9:01 PM EST - 05/01/2024 2:[address] [facility] Emergency Department [address] [place] [phone] Discharge Disposition: Home or Self Care from [...] Sign Reading Time Taken Comments Blood Pressure 134/95 07/04/2024 7:38 PM EDT Pulse 96 07/04/2024 7:38 PM EDT Temperature 36.6 ??C (97.9 ??F) 07/04/2024 7:38 PM ED T Respiratory Rate 18 07/04/2024 7:38 PM EDT Oxygen Saturation 99% 07/04/2024 7:38 PM EDT Inhaled Oxygen Concentration - - Weight 136 kg (300 lb) 07/04/2024 7:38 PM EDT Height 162.6 cm (5' 4 ) 07/04/2024 7:38 PM EDT Body Mass Index 51.49 07/04/2024 7:38 PM EDT Plan of Treatment Health Maintenance Due [...] Influencers of Health Screening 08/14/2022 COVID-19 Vaccine (1 - 2023-2 5 season) 2023 Influenza Vaccine [...] age to complete this topic Insurance MEDICARE [facility] MEDICAID Advance Directives * Full Code [...] currently active code status orders. Care Teams Health Center Associate Relationship Specialty Start Date End Date Keyana Nguyen MD [address] [place] [phone] PCP - General Family Medicine 01/19/23
--- OUTSIDE RECORDS SUMMARY | 2024-07-04 19:45 | XMS_ITS | Encounter Summary ---
Author Organization [facility] [place] [address] Care Team Providers Care Bistro Server Name Role Phone Keyana Nguyen MD Primary Care Provider [phone] Reason for Visit * Reason Comments Back Pain Encounter Details Date Type Department Care Team (Late st Contact Info) Description 07/04/2024 7:29 PM EDT Emergency [facility] Emergency [address] [place] [address] Social History Tobacco Use Types Packs/Day Years Used Date Smoking Tobacco: Never Smokeless Tobacco: Never Alcohol Use Standard [...] not to disclose 2023 10:29 PM EST documented as of this encounter Last Filed [...] Mass Index 51.49 07/04/2024 7:38 PM EDT documented in this encounter Progress Notes * Mae Matos RN - 07/04/2024 7:30 PM EDT Presents via ems from outside of [facility], was seen there earlier today for back pain. Has hx of back pain. Pt unhappy with the answer she got at [facility]. Refused vital signs for ems Pt is here from [place], and is homeless documented in this encounter Plan of Treatment Not on file documented as of this encounter Visit Diagnoses Not on filedocumented in this encounter Care Teams Bistro Server Relationship Specialty Start Date End Date Keyana Nguyen MD [address] [place] [phone] PCP - General Family Medicine 01/19/23 documented as of this encounter
--- OUTSIDE RECORDS SUMMARY | 2024-07-04 19:45 | XMS_ITS | Referral Summary ---
Author Organization [facility] Address [address] [place] [address] Care Team Providers Care Chiropractic Doctor Name Role Phone Pcp, No Primary Care [...] of Treatment Not on file Care Teams Chiropractic Doctor Relationship Specialty Start Date End Date Pcp, No [place] [address] PCP - General 05/20/23
--- OUTSIDE RECORDS SUMMARY | 2024-07-04 19:45 | XMS_ITS | Clinical Summary ---
Author Organization [facility], [facility], and [facility] Address [address] [place] [address] Care Team Providers Care Watch Band Assembler Name Role Phone Greg Tolbert MD Unavailable Ricardo Jo MD Unavailable Dee Luna MD Unavailable [phone] Keyana Torrez Unavailable [phone] Keyana Torrez Primary Care Provider Allergies [...] Needed. 60 g 06/04/19 25 Active nystatin 589036 UNIT/GM Powder powderIndication s:Candidiasis Apply topically 2 [...] EDT - 07/02/2024 12:[address] [facility]ULT EM[facility]Y [address] [place] [phone] Adina Tang MD Back Pain (Lower Back Pain s/p lifting her luggage ) Discharge Disposition: Home or Self Care 07/01/2024 8:28 AM EDT - 07/01/2024 8:08 PM EDT Hospital Encounter [facility] [address] [place] [address] [place] [phone] Yajaira Danielle DDS Consult ( I'd like to get a cleaning done. I don't really have any pain ) Discharge Disposition: Home or Self Care 07/01/2024 12:34 AM EDT - 07/01/2024 3:11 AM EDT Emergency [facility] [address] [place] [phone] Back Pain Discharge Disposition: Home or Self Care 06/21/2024 2:05 AM EDT - 06/21/2024 3:37 AM EDT Emergency [facility] [address] [place] [phone] Gilles Galloway MD vertigo Discharge Disposition: Home or Self Care 06/20/2024 8:20 PM EDT - 06/20/2024 8:53 PM EDT Emergency [facility] Emergency Room [address] [place] [phone] Meeta Vincent MD Headache Discharge Disposition: Home or Self Care 06/10/2024 7:05 PM EDT - 06/10/2024 10:58 PM EDT Emergency [facility] Emergency Room [address] [place] [phone] Headache; Requesting Social Work Discharge Disposition: Home or Self Care 06/07/2024 9:10 PM EDT - 06/08/2024 2:19 AM EDT Emergency [facility] Emergency [address] [place] [phone] OTHER (Traveling on train for 3 hrs leg hurts) Discharge Disposition: Home or Self Care 06/05/2024 6:41 AM EST - 06/05/2024 1:24 PM EST Emergency [facility] Emergency Room [address] [place] [phone] Mohinder Olivares MD Abdominal Pain; Leg Swelling; heavy period Discharge Disposition: Home or Self Care 06/03/2024 2:25 PM EST - 06/03/2024 4:42 PM EST Emergency [facility] Emergency Room [address] [place] [phone] Christina Rizzo MD Rash Discharge Disposition: Home or Self Care 06/02/2024 10:44 PM EST - 06/03/2024 1:36 AM EST Emergency [facility] [address] [place] [phone] Ashley Mason MD Dizziness Discharge Disposition: Home or Self Care 06/02/2024 1:22 PM EST - 06/02/2024 2:15 PM EST Emergency [facility] [address] [place] [phone] Zoran Tejada MD Rash (Rash for 3 days ) Discharge Disposition: Home or Self Care 06/02/2024 7:37 AM EST - 06/02/2024 9:41 AM EST Emergency [facility] [address] [place] [phone] Discharge Disposition: Home or Self Care 06/02/2024 3:05 AM EST - 06/02/2024 7:09 AM EST Emergency [facility] [address] [place] [phone] Jean Paul Novak MD Rash (Pt was called so many times but was sleeping requested to be seen in fast track. C/o rash to lateral right back and leg x 3 -4 days) Discharge Disposition: Home or Self Care 05/26/2024 8:20 AM EST - 05/26/2024 10:31 AM EST Emergency [facility] Emergency [address] [place] [phone] Nasal Congestion Discharge Disposition: Home or Self Care 05/25/2024 4:29 AM EST - 05/25/2024 10:10 AM EST Emergency [facility] [address] [place] [phone] Larry Linares MD Nasal congestion; left leg pain Discharge Disposition: Home or Self Care 05/23/2024 9:37 PM EST - 05/23/2024 11:54 PM EST Emergency [facility] [address] [phone] Alise Cesar MD Rash Discharge Disposition: Home or Self Care 05/23/2024 12:21 AM EST - 05/23/2024 10:59 AM EST Emergency [facility] [address] [place] [phone] Jean Paul Novak MD Visconti, Annette, MD Psychiatric Evaluation Discharge Disposition: Home or Self Care 05/10/2024 11:48 PM EST - 05/11/2024 4:44 AM EST Emergency [facility] [address] [place] [phone] Vicente Cross MD Swollen legs (As [...] place to sleep or slept in a snf (including now)? No 07/12/2022 Comments No Sex [...] 5:00 PM EDT Appointment [facility] [address] [place] [phone] Cheryl Robbins, DDS [address] [place] [phone] Health Maintenance Due Date Last Done Comments [...] BLOOD METER POC (06/02/2024 10:34 PM EST) [facility] Glucose Whole Blood Meter POC 94 65 - 95 mg/dL 06/02/2024 10:34 PM EST [facility] Blood 06/02/2024 10:3 4 PM EST 06/02/2024 10:36 PM EST Narrative Resulting Agency Comment GlWBMetPOC Provider Unknown LAB-POINT OF CARE Final Result [facility] [address] [address] [facility] [address] [address] from Last 3 Months Insurance MEDICAID [employer] * Guarantor: David Luna Account Type Relation to Patient Date of Phone Billing Address Personal/Family Self [address] [place] [address] [employer] MEDICARE MEDICAID [employer] Member Subscriber Plan / Payer (Ef fective 2023-Present) Name:David Luna Member ID:[id number] Relation to Subscriber:Self Name:Jeremy Fortinoarlette Subscriber ID:[id number] Payer ID:[id number] Group ID:Not on file Type:Medicaid Address: [place] [id number] * Guarantor: David Luna Account Type Relation to Patient Date of Phone Billing Address Personal/Family Self [address] [place] [address] [employer] MEDICARE MEDICAID [employer] * Guarantor: David Luna Account Type Relation to Patient Date of Phone Billing Address Dental Self [address] [place] [address] MEDICAID [employer] Member Subscriber Plan / Payer (Ef fective 2023-Present) Name:David Luna Member ID:[id number] Relation to Subscriber:Self Name:David Luna Subscriber ID:[id number] Payer ID:[id number] Group ID:Not on file Type:Medicaid Address: [place] [id number] [employer] MEDICARE Advance Directives Documents on File Type Date Recorded Patient Fryer Line Helper Expl anation Advance Directives 05/12/2021 7:17 AM cons tant observation behavior log Care Teams Watch Band Assembler Relationship Specialty Start Date End Date Keyana Torrez [address] [place] [phone] PCP - PCP Assigned by Plan 05/10/24 Keyana Torrez [address] [place] [phone] PCP - General 07/01/24 Greg Tolbert MD [address] [place] [phone] Medicine - Endocrinology 04/13/22 Ricardo Jo MD [address] [place] [address] [address] [place] [address] Neurology 04/20/22 Dee Luna MD [address] [place] [phone] Physical Medicine and Rehabilitation 05/04/22
== END 2024-07-04 21:13 | disposition home or self-care (01) ==
LOC: HO.ED 19:42
PROVIDERS: Emergency Provider Internal Medicine
DX: M54.9 Dorsalgia, unspecified (principal)
CPT/HCPCS: 99281